=== PATIENT | male | born 1960 | race Caucasian/White ===

== ENCOUNTER → 2020-06-02 08:33 | Outpatient (BNVA) | payer SELFPAY | PROVIDERS: Family Provider General Practice; PCP Family Medicine; Visit Provider Podiatrist Foot & Ankle Surgery | DX: M79.672 Pain in left foot (principal); M79.89 Other specified soft tissue disorders | CPT/HCPCS: 73630 ==

== ENCOUNTER → 2020-06-18 09:00 | Outpatient (BNVA) | payer SELFPAY | PROVIDERS: Family Provider General Practice; PCP Family Medicine; Referring Provider Dermatology; Visit Provider Podiatrist Foot & Ankle Surgery | DX: M84.375D Stress fracture, left foot, subsequent encounter for fracture with routine healing (principal); X58.XXXD Exposure to other specified factors, subsequent encounter; Z47.89 Encounter for other orthopedic aftercare | CPT/HCPCS: 73630 ==

== ENCOUNTER → 2020-07-09 08:01 | Outpatient (BNVA) | payer SELFPAY | PROVIDERS: Family Provider General Practice; PCP Family Medicine; Visit Provider Podiatrist Foot & Ankle Surgery | DX: M84.375D Stress fracture, left foot, subsequent encounter for fracture with routine healing (principal) | CPT/HCPCS: 73630 ==

== ENCOUNTER 2020-11-04 07:04 | Inpatient (IN) | payer SELFPAY ==
[2020-11-04] VITALS (35 sets, daily range): BP systolic 115–162; BP diastolic 13–107; PULSE 60–851; RESP 10–33; TEMP 36.3–37.3; O2SAT 91–100; BMI 29.5
--- NOTE | 2020-11-04 07:07 | ECG_ITS ---
[facility] Test Date: 2020-11-04 Pat Name: Tyrese Bermudez Department: Room: Gender: Male Horseshoer: : 1960 Requested By: Jose Lobato Order Number: [id number] Yari MD: Gail Latham M.D. Measurements Intervals [place] Rate: 93 P: 31 ME: 154 QRS: 7 QRSD: 107 T: 35 QT: 362 QTc: 451 Interpretive Statements SINUS RHYTHM ST ELEVATION, CONSIDER INFERIOR INJURY [MARKED ST ELEVATION W/O NORMALLY INFLECTED T WAVE IN II/aVF] ACUTE OK Compared to ECG 08/15/2016 08:59:51 ST (T wave) deviation now present Myocardial infarct finding now present Electronically Signed On 11-04-2020 16:44:00 CDT by Gail Latham M.D. [id number] f
--- NOTE | 2020-11-04 07:07 | W.ED.CHESTPA ---
HPI - Chest Pain General: Chief Complaint: Chest Pain Stated Complaint: chest pain Time Seen by Provider: 11/04/20 07:06 History of Present Illness: HPI narrative: 60-year-old male presents with complaint of chest pain. Patient is a known history of coronary disease about 10 years ago had PTCA with RCA stent. He is still taking aspirin but no Plavix he is also on lisinopril. He is not having any chest discomfort recently this morning while in the shower he began to feel chest heaviness and discomfort was diaphoretic on arrival here he is diaphoretic he has ST elevation on the monitor and on initial EKG although the twelve-lead EKG is subtle. 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 Onset (ago): minute(s) Timing of current episode: constant Prior episodes: Yes Onset: during rest Pain location: left chest Pain radiation: none Severity: moderate Pain scale (0-10): 5 Quality: tightness and heaviness Relieving factors: nothing Exacerbating factors: exertion Associated symptoms: Reports diaphoresis, nausea and sense of impending doom; Deny abdominal pain, dyspnea, fever(s), leg edema, palpitations, syncope or vomiting Treatment prior to arrival: aspirin Review of Systems Const: Reports: diaphoresis; Denies: fever(s) ENMT: Denies: throat pain, ear or mastoid pain, nasal discharge or nasal congestion Card: Denies: palpitations or syncope Resp: Denies: dyspnea GI: Reports: nausea; Denies: abdominal pain or vomiting : Denies: flank pain, dysuria, urinary frequency or urinary urgency Skin/Breast: Denies: rash or pruritus [facility] ED PFSH: Medical History (Updated 11/04/20 @ 08:05 by Jose Singer DO) ASHD (arteriosclerotic heart disease) Dyslipidemia HTN (hypertension) Myocardial infarction Surgical History (Updated 11/04/20 @ 08:05 by Jose Singer DO) S/P PTCA (percutaneous transluminal coronary angioplasty) Family History Father CAD (coronary artery disease) Brother CAD (coronary artery disease) Hypertension Mother CAD (coronary artery disease) S/P CABG (coronary artery bypass graft) Social History Smoking and tobacco status: never smoked Household members: spouse Marital status: Physical Exam Const: COMMON NORMALS: no acute distress GENERAL APPEARANCE: cooperative and comfortable ORIENTATION/CONSCIOUSNESS: Yes awake, Yes oriented to person, Yes oriented to place and Yes oriented to time HENMT: COMMON NORMALS: normocephalic, atraumatic and hearing grossly normal bilaterally HEAD & SCALP: normocephalic and atraumatic Neck/C-Spine: COMMON NORMALS: no JVD Resp: COMMON NORMALS: normal respiratory effort, No retractions, No use of accessory muscles and clear to auscultation bilaterally AUSCULTATION: clear to auscultation bilaterally Cardio: COMMON NORMALS: no JVD, regular rhythm and No murmurs present (Cardio) RATE: tachycardic RHYTHM: regular rhythm Extremity: COMMON NORMALS: normal to inspection, capillary refill normal, no clubbing, cyanosis or edema, no calf tenderness and no pedal edema OTHER: Diaphoretic Neuro: SENSORIUM/ORIENTATION: Yes oriented to person, Yes oriented to place and Yes oriented to time Skin: COMMON NORMALS: no rashes or lesions noted GENERAL SKIN EXAM: no rashes or lesions noted Course Vital Signs: Vital signs: Vital Signs Temperature 97.4 F L 11/04/20 07:09 Pulse Rate 95 11/04/20 07:36 Respiratory Rate 17 11/04/20 07:36 Blood Pressure 155/99 11/04/20 07:36 Pulse Oximetry 95 11/04/20 07:36 MDM - Chest Pain MDM Narrative: Medical decision making narrative: Patient is having a STEMI. Reviewed with Dr. Solorzano of loaded him with aspirin and Plavix he has been prepped for the Hydropress Operator and will transfer directly to the Hydropress Operator Lab Data: Labs: Lab Results 11/04/20 11/04/20 11/04/20 Range/Units 07:15 07:15 07:15 WBC 9.5 (4.0-10.0) 10^3/ uL RBC 4.83 (4.1-5.3) 10^6/u L Hgb 14.3 (11.7-16.6) g/dL Hct 45.2 (42.0-52.0) % MCV 93.6 (80-94) fL MCH 29.6 (28.0-34.0) pg MCHC 31.6 (30.0-36.0) g/dL RDW 11.9 L (12.1-15.1) % Plt Count 305 (130-400) 10^3/c mm MPV 9.2 (7.4-10.4) fL Lymph % (Auto) Not Reportable [place] % (Auto) Not Reportable Lymph # (Auto) Not Reportable [place] # (Auto) Not Reportable Total Counted 100 (0-100) Atypical Lymphs % 7.0 H (0-5) % Absolute Neutrophi ls 5.9 (1.4-6.5) 10^3/c mm Segmented Neutroph ils 60 % Abs Segm Neuts (Ma n) 5.7 (1.6-7.1) 10/cmm Band Neutrophils 2.0 % Abs Band Neuts (Ma n) 0.2 (0.0-1.2) 10^3/c mm Absolute Lymphocyt es 2.4 (1.2-3.4) 10^3/c mm Lymphocytes (Manua l) 18 % Monocytes (Manual) 6.0 % Absolute Monocytes 0.6 (0.1-0.6) 10^3/c mm Eosinophils (Manua l) 7 % Absolute Eosinophi ls 0.6 (0.0-0.7) 10^3/c mm Basophils (Manual) 0.0 % Absolute Basophils 0.0 (0.0-0.2) 10^3/c mm Platelet Estimate Normal (Normal) Sodium 143 (136-145) mmol/L Potassium 3.7 (3.5-5.1) mmol/L Chloride 105 (98-107) mmol/L Carbon Dioxide 23 (22-29) mmol/L Anion Gap 18.7 (5-19) BUN 18 (6-20) mg/dL Creatinine 1.0 (0.7-1.2) mg/dL GFR Calculation 76.7 L (90-130) mL/min Glucose 120 H (65-115) mg/dL Calculated Osmolal ity 299 H (285-295) mOsm/k g Calcium 8.8 (8.5-10.5) mg/dL Total Bilirubin 0.6 (0.15-1.2) mg/dL AST 22 (0-40) U/L ALT 45 H (0-41) U/L Alkaline Phosphata se 93 (40-130) IU/L Creatine Kinase 70 (39-308) U/L Troponin T Baselin e 19 H (0-15) ng/L Total Protein 7.9 (6.6-8.7) g/dL Albumin 3.6 (3.5-5.2) g/dL Globulin 4.3 (1.3-4.6) g/dL Discharge Plan Discharge Patient Disposition: Admitted As Inpatient Clinical Impression: ST elevation myocardial infarction (STEMI), S/P PTCA (percutaneous transluminal coronary angioplasty), ASHD (arteriosclerotic heart disease), HTN (hypertension) Condition: Stable Coding Level of Care Code ED Web Analytics Developer for Mitali Fwd Exam Detailed
--- NOTE | 2020-11-04 07:10 | PC.NURSE ---
STEMI Alert called
[2020-11-04 07:21] LABS: Hematocrit 45.2 % (42.0-52.0); Hemoglobin 14.3 g/dL (11.7-16.6); Mean Corpuscular HGB Conc 31.6 g/dL (30.0-36.0); Mean Corpuscular Hemoglobin 29.6 pg (28.0-34.0); Mean Corpuscular Volume 93.6 fL (80-94); Mean Platelet Volume 9.2 fL (7.4-10.4); Platelet Count 305 10^3/cmm (130-400); Red Blood Count 4.83 10^6/uL (4.1-5.3); Red Cell Distribution Width 11.9 % (12.1-15.1); White Blood Count 9.5 10^3/uL (4.0-10.0)
[2020-11-04] MEDS: morphine 4 mg/mL SDV 1 mL 2 MG IVP ×2 (07:23→07:32)
[2020-11-04] MEDS: clopidogrel 300 mg Tablet 600 MG PO (07:29)
[2020-11-04] MEDS: heparin 5,000 unit/mL INJ 1 mL 4000 UNIT IVP (07:29)
--- NOTE | 2020-11-04 07:33 | XACV_ITS ---
Ht: 183 cm Wt: 93 kg BSA: 2.20 m2 Gender: Male : 1960 Any Known Allergies: Other Exam Priority: Routine Procedure(s): Procedure Description: Diagnostic procedure Procedure Description: PCI procedure Procedure Description: Left Heart Catheterization Procedure Description: Drug Eluting Coronary Stent Procedure Description: PTCA Procedure Description: Coronary Angiography Diagnostic Cath Status: Emergency Diagnostic Findings * Left Main has no significant disease. * Circumflex has mild luminal irregularities.. * Mid Right Coronary Artery:moderate 40-50% stenosis, JT: 3 flow. * Distal Right Coronary Artery: total thrombotic occlusion, JT: 0 flow. * Mid Left Anterior Descending: moderate 50% stenosis, JT: 3 flow. * Coronary angiography shows right dominance. PCI Status: Emergency PCI Indication: STEMI - Immediate PCI for STEMI Interventional Findings * Procedure details: We engaged RCA with a JR4 guide catheter. IV heparin was administered to maintain an ACT above 250 seconds. A 0.014 run-through guidewire was used to cross the stenosis and was placed in PDA branch. 2.5 x 8 mm semicompliant balloon was used to predilate the stenosis in the distal RCA/ PDA branch. This was followed by placement of 2.79S37ey resolute [place] drug-eluting stent extending from distal RCA into the PDA. Patient's PLV branch was jailed and could not be wired. However his ST elevations resolved and the patient was chest pain-free. We decided to stop the procedure there. At this time final angiogram was performed that showed excellent stent expansion, JT-3 flow and no residual stenosis. Guidewire and guide catheter were removed. Patient left the Abrasive Sawyer in a stable condition. * Distal Right Coronary Artery: 100% stenosis treated with a AB TREK 2.50X8 RX BALLOON, and MDT R MENDEZ 2.75X15 JULIEN. 0% residual stenosis, JT: 3 flow. Conclusions 1. Total thrombotic occlusion of distal RCA 2. status post successful revascularization with JULIEN x1.. 3. Moderate mid RCA and mid LAD stenosis. Recommendations * Transfer to CSU. * Aspirin and Plavix for atleast 1 year. * High intensity statin therapy. * Patient has moderate mid LAD and mid RCA stenosis. We will assess with stress test as outpatient to look for ischemia. * Outpatient follow up with cardiology in 4 weeks. Interventional RX Recommendation: PCI w/o planned CABG Diagnostic RX Recommendation: PCI w/o planned CABG Anticoagulation: Heparin Pressures Phase:Rest AO : 124 / 86 ( 105 ) @ 6:51:00 AM 108 / 32 ( 37 ) @ 6:53:00 AM 89 / 62 ( 77 ) @ 6:59:00 AM 94 / 67 ( 83 ) @ 7:06:00 AM 100 / 68 ( 85 ) @ 7:09:00 AM 103 / 79 ( 89 ) @ 7:17:00 AM 95 / 64 ( 80 ) @ 7:18:00 AM 105 / 70 ( 89 ) @ 7:27:00 AM 105 / 75 ( 91 ) @ 7:34:00 AM Clinical Evaluation EBL: 5mL-10mL Procedural Details Current Diagnosis : STEMI. Pre-Procedure Time Out. Identified patient by full name and date of as verbalized by the patient/guarantor. Does the consent match the physician's order: N/A Emergent; Informed Consent not obtained due to time critical life threat. Accurate & Complete Informed Consent: N/A Emergent; Informed Consent not obtained due to time critical life threat. Inpatient/Outpatient History & Physical on Chart: N/A Emergent; Informed Consent not obtained due to time critical life threat. If H&P is completed, is and addenduem needed: N/A Emergent; Informed Consent not obtained due to time critical life threat; If yes, is the addendum complete: N/A Emergent; Informed Consent not obtained due to time critical life threat. Visualize and Verify Site with Patient/Guarantor: N/A. Relevant Radiology Images available: N/A Emergent; Informed Consent not obtained due to time critical life threat. Pre-op teaching completed and patient verbalized understanding. The risks, benefits, and alternatives of sedation and/or procedure were discussed by physician. The patient agrees to continue. Procedure started. PERRLA. Strong, equal hand leather case finisher bilaterally. Lungs clear x 5 lobes. IV Site on Arrival: 18 gauge in the left anticubital. IV Site on Arrival: 20 gauge in the right anticubital. IV Fluids: 0.9% NaCl at KVO. 0 mL infused prior to crime lab analyst. Oxygen started at 2liters/min via nasal canula. right groin was prepped with chloroprep then draped in the usual sterile fashion. right radial was prepped with chloroprep then draped in the usual sterile fashion. Physician notified. Equipment: 6F - Radial. Cardiac Cath Pack. ACIST Manifold Kit Model BT 2000. Heparinized Saline (2 units/mL), 1000 mL bag. Physician arrived. ap pads on pt. Baseline sample Acquired. HR: 97 BPM. Physician scrubbed in. Immediate Pre-Procedure Time Out. Correct Patient: Yes; Correct Procedure: Yes; Correct Site: Yes; Correct Patient Position: Yes; Correct Supplies: Yes; Dried Flammable Prep: Yes; Blood Products Available: No;. Lidocaine 1% infiltrated to the right radial. Arterial access obtained. A 5 iraqi TIG catheter in over wire. Multiple views taken of left coronary artery. Catheter redirected to the RCA. Multiple views taken of right coronary artery. 6 iraqi JR 4 guide catheter was inserted over the wire. Runthrough guidewire was advanced through the guide catheter to lesion in the distal RCA. Inflation number : 1 A AB TREK 2.50X8 RX BALLOON was prepped and advanced across the Dist RCA , then inflated to 12 NONA for 0:22 seconds. Inflation number: 2 The AB TREK 2.50X8 RX BALLOON was reinflated across the Dist RCA, to 12 NONA for 0:24 seconds. Results checked. Balloon out. guide liner inserted over wire. Inflation number: 3 The AB TREK 2.50X8 RX BALLOON was reinflated across the Dist RCA, to 12 NONA for 0:22 seconds. Inflation number: 4 The AB TREK 2.50X8 RX BALLOON was reinflated across the Dist RCA, to 12 NONA for 0:16 seconds. Patient's family updated. Inflation number: 5 The AB TREK 2.50X8 RX BALLOON was reinflated across the Dist RCA, to 12 NONA for 0:19 seconds. Inflation number: 6 The AB TREK 2.50X8 RX BALLOON was reinflated across the Dist RCA, to 12 NONA for 0:12 seconds. Balloon out. Results checked. Inflation Number : 7 A MDT R MENDEZ 2.75X15 JULIEN -Lot Number#[id number] exp 07-06-2022 was prepped and advanced across the Dist RCA. The stent was deployed at 14 NONA for 0:24 seconds. Stent balloon out over wire. Results checked. Results checked. Patient's family updated. guide liner removed. Wire out. Runthrough guidewire was advanced through the guide catheter to lesion in the PLV. unable to advance guidewire. Wire out. Results checked. Guide catheter out. A 5 iraqi TIG catheter in over wire. ACT drawn. Results 211 seconds. Therapeutic limits - pre-heparin administration 90-150 seconds and monitoring heparin during a vascular procedure >250 seconds. Multiple views taken of left coronary artery. Catheter out. A TR Band was successful obtaining hemostatsis at the Right Radial artery insertion site. TR band placed. Hemostasis obtained. Post Procedure: Pulses reassessed and unchanged. PERRLA. Strong, equal hand leather case finisher bilaterally. No VTE prophylaxis required. Total IV fluids: 100 mL. Fluoro: 18:50. Contrast type used: Omnipaque 300 mgI/mL, 500 mL bottle. [id number]. Complications: none. Estimated blood loss: 5mL-10mL. Medication's Wasted: Nitro = 49.8 mg. Medication's Wasted: Heparin = 3000 units. PCI Indication: STEMI. Post-op diagnosis: stemi. [facility] Clinical Fraility Score: 2: Well. Abrasive Sawyer Indications: ACS <= 24 hours. Chest Pain Symptom Assessment: Typical Angina Symptoms. Cardiovascular Instability: No. Procedure completed. Patient transferred by wheelchair to Outpatient Surgery. Vital chart was stopped. Access Site Site: Right Radial artery Sheath Size: 5 Fr Hemostasis Method: TR Band Hemostasis Success: Successful Procedure Medications Start: 7:42 AM Stop: 7:42 AM Medication: Plavix Amount: 600 mg Route: P.O. Start: 7:42 AM Stop: 7:42 AM Medication: Heparin Amount: 4000 units Route: I.V. Start: 7:44 AM Stop: 7:44 AM Medication: Versed Amount: 1 mg Route: I.V. Start: 7:44 AM Stop: 7:44 AM Medication: Fentanyl Amount: 50 mcg Route: I.V. Start: 7:49 AM Stop: 7:49 AM Medication: Nitrogylcerin Amount: 200 mcg Route: I.A. Start: 7:51 AM Stop: 7:51 AM Medication: Heparin Amount: 5000 units Route: I.V. Start: 8:00 AM Stop: 8:00 AM Medication: Versed Amount: 1 mg Route: I.V. Start: 8:00 AM Stop: 8:00 AM Medication: Fentanyl Amount: 50 mcg Route: I.V. Start: 8:11 AM Stop: 8:11 AM Medication: Heparin Amount: 2000 units Route: I.V. Start: 8:28 AM Stop: 8:28 AM Medication: Nitrogylcerin Amount: 100 mcg Route: I.C. Start: 8:29 AM Stop: 8:29 AM Medication: Aggrastat 12.5 mg/250 mL Amount: 47 ml Route: I.V. bolus Start: 8:29 AM Stop: 8:29 AM Medication: Aggrastat 12.5 mg/250 mL Amount: 16.9 ml/hr Route: I.V. drip Start: 8:35 AM Stop: 8:35 AM Medication: 0.9% Saline Amount: 100 ml/hr Start: 8:38 AM Stop: 8:38 AM Medication: Heparin Amount: 1000 units Route: I.V. I, the attending physician, have reviewed and verified all procedure medications. Yes, all medications given per verbal order Report Signatures Finalized by David Keller MD on 11/13/2020 12:39 PM
[2020-11-04] MEDS: ondansetron 2 mg/ML SDV 2 mL 4 MG IVP (07:35)
[2020-11-04] MEDS: metoprolol tartrate 1 mg/1 mL SDV 5 mL 5 MG IV (07:35)
--- NOTE | 2020-11-04 07:39 | PC.NURSE ---
patient transported to entry level lab technician
--- NOTE | 2020-11-04 07:40 | PM.HP ---
Providers/Chief Complaint Primary Care Provider: Efren Hunt MD Chief Complaint: chest pain History of Present Illness Tyrese Bermudez is a 60 year old male with past medical history of coronary artery disease status post RCA stent, hypertension and hyperlipidemia has presented with severe substernal chest pressure. According to patient he was recently diagnosed with urinary tract infection and is on Cipro. For the last 2 days he was not feeling well. However no chest pain was there. He was fatigued and had sweating episodes. About 2 hours prior to presentation, he started noticing significant chest pressure. EKG has shown ST elevation in the inferior leads. Patient taken emergently to the cardiac Surveillance Sensor Officer and coronary angiogram performed showed occluded distal RCA stent. He underwent successful revascularization with JULIEN x1. Review of Systems Const: Denies: fever(s) Eyes: Denies: change in vision ENMT: Denies: throat pain Card: Reports: chest pain; Denies: irregular heart rhythm, swelling of feet/ankles or dyspnea on exertion Resp: Denies: dyspnea GI: Denies: heartburn : Denies: flank pain Musc: Denies: neck pain Skin/Breast: Denies: rash Neuro: Denies: headache(s) Psych: Denies: anxiety Medications/Allergies Home Medications Medication Instructions Recorded Confirmed Last Taken Type aspirin 81 mg tablet,delayed 81 mg PO DAILY 09/19/19 09/24/20 Unknown History release cetirizine 10 mg tablet 10 mg PO DAILY 09/19/19 09/24/20 Unknown History lisinopril 20 mg tablet 20 mg PO DAILY 09/19/19 09/24/20 Unknown History carbon fiber insert #1 ea 06/18/20 09/24/20 Unknown Rx Allergies Allergy/AdvReac Type Severity Reaction Status Date / Time influenza virus vaccine qs Allergy Severe ALGY-Conges Verified 11/04/20 07:14 [id number] (36 mos, up) mikki [From Single Use EZ Flu] PFSH Acute PFSH: Medical History (Updated 11/04/20 @ 12:18 by David Keller M.D) ASHD (arteriosclerotic heart disease) Dyslipidemia HTN (hypertension) Myocardial infarction Surgical History S/P PTCA (percutaneous transluminal coronary angioplasty) Family History Father CAD (coronary artery disease) Brother CAD (coronary artery disease) Hypertension Mother CAD (coronary artery disease) S/P CABG (coronary artery bypass graft) Social History Smoking and tobacco status: never smoked Household members: spouse Marital status: Vitals/I&O/Wt Last Vital Signs Temp 97.4 F L 11/04/20 07:09 Pulse 95 11/04/20 07:36 Resp 17 11/04/20 07:36 BP 155/99 11/04/20 07:36 Pulse Ox 95 11/04/20 07:36 Weight last 48 hrs Weight 206 lb Physical Exam Narrative: EXAM NARRATIVE: GENERAL: Patient is alert, awake and oriented x3. [] NECK: No jugular vein distension. [] HEENT: No cyanosis. No icterus. No pallor. [] HEART: Regular S1 and S2. No murmur, rub or gallop. [] LUNGS: Clear to auscultate bilaterally. [] ABDOMEN: Soft, nontender and nondistended. Positive bowel sounds. No guarding, rebound or tenderness. [] CENTRAL NERVOUS SYSTEM: Grossly nonfocal. [] EXTREMITIES: Lower extremities with 1+ edema bilaterally. Pulses palpable in the lower extremities, both dorsalis pedis and posterior tibial. [] Data : 11/04/20 07:15 11/04/20 07:15 A&P Assessment and plan (1) ST elevation myocardial infarction (STEMI): Status: Acute (2) HTN (hypertension): Status: Acute (3) Dyslipidemia: Status: Acute (4) UTI (urinary tract infection): Status: Acute Patient has presented with acute inferior wall ST elevation ID . Coronary angiogram revealed occluded distal RCA stent. He underwent successful revascularization with JULIEN x1. PLV branch remained occluded. Aspirin and Plavix for at least 1 year. High intensity statin therapy. Continue metoprolol and lisinopril. Order echocardiogram. We will continue ciprofloxacin for now as he was getting as outpatient. Monitor renal function. Attestations Medical Necessity Statement*: Care expected to cross 2 midnights. Patient presented with acute ST elevation ID and is status post successful revascularization with JULIEN x1. Coding Level of Care Code Acute Vocational Rehabilitation Counselor for Mitali Molina Diagnoses ST elevation myocardial infarction (STEMI) I21.3 HTN (hypertension) I10 Dyslipidemia E78.5 UTI (urinary tract infection) N39.0
[2020-11-04 07:49] LABS: Alanine Aminotransferase 45 U/L (0-41); Albumin Level 3.6 g/dL (3.5-5.2); Alkaline Phosphatase 93 IU/L (40-130); Aspartate Amino Transferase 22 U/L (0-40); Blood Urea Nitrogen 18 mg/dL (6-20); Calcium 8.8 mg/dL (8.5-10.5); Carbon Dioxide 23 mmol/L (22-29); Chloride 105 mmol/L (98-107); Creatine Phosphokinase 70 U/L (39-308); Globulin 4.3 g/dL (1.3-4.6); Glomerular Filtration Rate 76.7 mL/min (90-130); Glucose 120 mg/dL (65-115); Osmolality Calculated 299 mOsm/kg (285-295); Sodium 143 mmol/L (136-145); Total Bilirubin 0.6 mg/dL (0.15-1.2); Total Protein 7.9 g/dL (6.6-8.7)
[2020-11-04 07:50] LABS: Anion Gap 18.7 (5-19); Potassium 3.7 mmol/L (3.5-5.1); Troponin(5th) Baseline 19 ng/L (0-15)
[2020-11-04 07:55] LABS: Slide Review Slide Review Perform
[2020-11-04 07:57] LABS: Absolute Eosinophils 0.6 10^3/cmm (0.0-0.7); Absolute Neutrophil 5.9 10^3/cmm (1.4-6.5); Absolute Segmented Neutrophil 5.7 10/cmm (1.6-7.1); Band Neutrophils Absolute 0.2 10^3/cmm (0.0-1.2); Eosinophils 7 %; Lymphocytes 18 %; Lymphocytes Absolute 2.4 10^3/cmm (1.2-3.4); Monocytes Absolute 0.6 10^3/cmm (0.1-0.6); Platelet Estimate Normal (Normal); Segmented Neutrophils 60 %; Total Cells Counted 100 (0-100)
--- NOTE | 2020-11-04 08:01 | ECG_ITS ---
[facility] Test Date: 2020-11-04 Pat Name: Tyrese Bermudez Department: Room: Gender: Male Rn Medical Inpatient Services: : 1960 Requested By: Jose Lobato Order Number: [id number] Yari MD: Gail Latham M.D. Measurements Intervals [place] Rate: 102 P: 29 ND: 148 QRS: 8 QRSD: 105 T: 25 QT: 350 QTc: 456 Interpretive Statements SINUS TACHYCARDIA ST ELEVATION, CONSIDER INFERIOR INJURY [MARKED ST ELEVATION W/O NORMALLY INFLECTED T WAVE IN II/aVF] ACUTE TN Compared to ECG 11/04/2020 07:25:04 No significant changes Electronically Signed On 11-04-2020 16:43:51 CDT by Gail Latham M.D. [id number] f
--- NOTE | 2020-11-04 09:07 | ECG_ITS ---
[facility] Test Date: 2020-11-04 Pat Name: Tyrese Bermudez Department: Room: Gender: Male Credit Controller: : 1960 Requested By: Jose Lobato Order Number: [id number] Yari MD: Gail Latham M.D. Measurements Intervals [place] Rate: 100 P: 52 IA: 154 QRS: 13 QRSD: 105 T: 39 QT: 342 QTc: 442 Interpretive Statements SINUS TACHYCARDIA WITH OCCASIONAL VENTRICULAR PREMATURE COMPLEXES MODERATE ST DEPRESSION [0.05+ mV ST DEPRESSION] INTERPRETATION BASED ON A DEFAULT AGE OF 40 YEARS Compared to ECG 08/15/2016 08:59:51 Ventricular premature complex(es) now present ST (T wave) deviation now present Sinus rhythm no longer present Electronically Signed On 11-04-2020 16:51:32 CDT by Gail Latham M.D. [id number] f
--- NOTE | 2020-11-04 09:14 | SUR.PHASEI ---
0900 PATIENT TO RECOVERY AT THIS TIME FROM BIOMEDICAL EQUIPMENT TECHNICIAN. RR EVEN AND UNLABORED. CARE ASSUMED OF PATIENT. WILL CONTINUE MONITOR.
[2020-11-04] MEDS: metoprolol succinate ER (24 HR) 25 mg Tablet PO (10:35)
--- NOTE | 2020-11-04 11:12 | SUR.PHASEI ---
1030 band deflation started at this time.
--- NOTE | 2020-11-04 11:53 | USCV_ITS ---
Tyrese Bermudez Age: 60 Gender: M : 1960 Exam Date: 11/04/2020 12:12 Ordering Phys: David Keller M.D ([email or web address]) Technologist: Yana Earl Exam Location: [facility] [place] Indication: POST STEMI BP: / HR: 72 Rhythm: Sinus Technical Quality: Adequate MEASUREMENTS (Male / Female) Normal Values 2D ECHO LV Diastolic Diameter PLAX 4.3 cm 4.2 - 5.9 / 3.9 - 5.3 cm LV Systolic Diameter PLAX 2.8 cm LV Chamber Size 3.5 cm IVS Diastolic Thickness 1.3 cm 0.6 - 1.0 / 0.6 - 0.9 cm IVS Systolic Thickness 1.6 cm LVPW Diastolic Thickness 1.5 cm 0.6 - 1.0 / 0.6 - 0.9 cm LVPW Systolic Thickness 1.6 cm RV Chamber Size 1.7 cm LVOT Diameter 2.0 cm LV Ejection Fraction 2D Teich 64.7 % LV Ejection Fraction MOD 2C 20.4 % LV Ejection Fraction 2C AL 23.3 % LA Diameter 3.6 cm LA Width 2.7 cm LA Height 4.1 cm RA Width 2.7 cm RA Height 4.5 cm Aorta at Sinotubular Diameter 3.6 cm M-MODE LV Diastolic Diameter MM 5.2 cm 4.2 - 5.9 / 3.9 - 5.3 cm LV Systolic Diameter MM 3.7 cm LV Ejection Fraction MM Teich 55.8 % IVS Diastolic Thickness MM 1.1 cm 0.6 - 1.0 / 0.6 - 0.9 cm IVS Systolic Thickness MM 1.6 cm LVPW Diastolic Thickness MM 1.3 cm 0.6 - 1.0 / 0.6 - 0.9 cm LVPW Systolic Thickness MM 1.8 cm Aortic Annulus Diameter 4.1 cm LA Ao Ratio MM 1.1 MV E Point Septal Separation 0.8 cm DOPPLER AV Peak Velocity 116.0 cm/s LVOT Peak Velocity 60.3 cm/s AV Area Cont Eq vti 2.1 cm squared AV Area Cont Eq pk 1.7 cm squared MV Area PHT 3.3 cm squared Mitral E to A Ratio 1.6 MV E' Velocity 38.5 cm/s Mitral E to MV E' Ratio 7.2 Mitral E to LV E' Lateral Ratio 6.9 Mitral E to LV E' Septal Ratio 7.5 TR Peak Velocity 227.9 cm/s TR Peak Gradient 20.8 mmHg TR Mean Velocity 181.6 cm/s TR Mean Gradient 14.2 mmHg TR Velocity Time Integral 62.0 cm TV Peak E Velocity 67.0 cm/s Right Atrial Pressure 3.0 mmHg Pulmonary Artery Systolic Pressu 23.8 mmHg PV Peak Velocity 61.0 cm/s RV Acceleration Time 0.1 s RV Ejection Time 0.4 s RV AcT/ET 0.3 FINDINGS Left Ventricle Normal left ventricular size. LV systolic function is mildly reduced with EF of 40-45%. Mild global hypokinesis with moderate hypokinesis of inferolateral and inferior jung. Normal diastolic filling pattern. Right Ventricle The right ventricle is normal in size and function. Right Atrium The right atrium is normal in size. Left Atrium The left atrium is mildly dilated Mitral Valve Grossly normal without significant stenosis or prolapse. There is no mitral regurgitation. Aortic Valve Not well visualized. No significant stenosis. There is no aortic regurgitation. Tricuspid Valve Structurally normal tricuspid valve without significant stenosis or regurgitation. Insufficient TR jet to calculate RVSP Pulmonic Valve Structurally normal pulmonic valve without significant stenosis. There is no pulmonic regurgitation. Pericardium Small sized pericardial effusion is noted Aorta Normal ascending aorta dimension. CONCLUSIONS This is a limited quality echocardiogram because of poor ultrasonic windows. LV systolic function is mildly decreased with EF of 40 to 45%. Diastolic function is normal No significant valvular heart disease is seen. Small sized pericardial effusion is seen. No comparison studies are available. David Keller MD (Electronically Signed) Final Date: 04 November 2020 17:37 S
--- NOTE | 2020-11-04 11:58 | SUR.PHASEI ---
TRANSFER Patient transferred to ICU via bed with belonging in hand. Family to WR. Shyla GUNDERSON received report. No issues at this time. Band removed INCIDENT COORDINATOR by myself with no Hematoma noted.
--- NOTE | 2020-11-04 12:01 | PC.NURSE ---
Pt arrived to ICU fro PACU. No chest pain, nausea or vomiting. NSR on monitor. Aggrastat and NS infusing into right AC IV. Another peripheral IV noted in left AC, blood return checked and flushes easily. Right wrist pink with appropriate cap refill, pulse steady and palpable. No bleeding noted at cath puncture site. Noted pt has a very slight amount of blood under his left nostril. Pt and oriented to room and call light.
--- NOTE | 2020-11-04 12:32 | PC.NURSE ---
Aggrastat off at 1230, as ordered.
--- NOTE | 2020-11-04 13:07 | ECG_ITS ---
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 Measurements Intervals [place] Rate: 106 P: 29 MS: 148 QRS: 1 QRSD: 97 T: 20 QT: 324 QTc: 431 Interpretive Statements SINUS TACHYCARDIA LOW QRS VOLTAGE IN PRECORDIAL LEADS [QRS DEFLECTION < 1.0 mV IN CHEST LEADS] POSSIBLE RIGHT VENTRICULAR CONDUCTION DELAY [RSR (QR) IN V1/V2] ANTEROSEPTAL MYOCARDIAL INFARCTION, OF INDETERMINATEAGE MARKED ST ELEVATION, CONSIDER INFERIOR INJURY ACUTE CO Compared to ECG 11/04/2020 07:18:18 Low QRS voltage now present Sinus rhythm no longer present Myocardial infarct finding still present ST (T wave) deviation still present Electronically Signed On 11-04-2020 16:50:58 CDT by Gail Latham M.D. [id number]
[2020-11-04 14:59] LABS: Add Urine Microscopic? NO; Charge for UA Resulting for Rev
[2020-11-04 15:17] LABS: Bilirubin Urine Neg (Negative); Blood Urine Neg (Negative); Glucose Urine UA Norm (Normal); Ketones Urine Negative (Negative); Leukocyte Esterase Urine Negative (Negative); Nitrate Urine Negative (Negative); Protein Urine Neg (Negative); Urine Appearance Clear (CLEAR); Urine Color Yellow (Yellow); Urobilinogen Urine Norm (Negative); pH Urine 5 (5-7)
[2020-11-04] MEDS: lisinopril 20 mg Tablet PO (15:25)
[2020-11-04] MEDS: sodium chloride 0.9% 1,000 ML 100 ML IV (18:02)
--- NOTE | 2020-11-04 19:20 | PC.NURSE ---
Report given to JALYN Rose.
--- NOTE | 2020-11-04 19:28 | PC.NURSE ---
Shift summary: Pt arrived to ICU at noon. TR band had already been released for 2-3 hours. HIs afternoon has been relatively uneventful. Hypertension noted, Dr Keller ordered his daily dose of lisinopril. B/P improved. No ectopy seen on monitor. Pt did complain of slight indigestion after lunch, which was relieved by lying on his side. Pt has adequate urine output, of clear yellow urine.
[2020-11-04] MEDS: atorvastatin 40 mg Tablet PO (20:46)
[2020-11-04] MEDS: ciprofloxacin 500 mg Tablet PO (20:46)
[2020-11-04] MEDS: metoprolol tartrate 25 mg Tablet PO (20:46)
[2020-11-05] VITALS (14 sets, daily range): BP systolic 109–134; BP diastolic 72–86; PULSE 64–84; RESP 14–23; TEMP 36.7–37.1; O2SAT 91–98
[2020-11-05 04:56] LABS: Basophils # 0.1 10^3/uL (0.0-0.1); Eosinophils # 0.2 10^3/uL (0.0-0.8); Eosinophils % 2.3 %; Hematocrit 41.9 % (42.0-52.0); Hemoglobin 12.8 g/dL (11.7-16.6); Lymphocytes # 1.5 10^3/uL (0.8-4.8); Lymphocytes % 16.6 %; Mean Corpuscular HGB Conc 30.5 g/dL (30.0-36.0); Mean Corpuscular Hemoglobin 29.6 pg (28.0-34.0); Mean Corpuscular Volume 96.8 fL (80-94); Mean Platelet Volume 9.2 fL (7.4-10.4); Monocytes # 0.6 10^3/uL (0.2-0.9); Monocytes % 7.1 %; Neutrophils % 72.5 %; Nucleated Red Blood Cells % 0 %; Platelet Count 274 10^3/cmm (130-400); Red Blood Count 4.33 10^6/uL (4.1-5.3); Red Cell Distribution Width 12.1 % (12.1-15.1); White Blood Count 8.8 10^3/uL (4.0-10.0)
[2020-11-05 05:14] LABS: Anion Gap 14.1 (5-19); Blood Urea Nitrogen 10 mg/dL (6-20); Calcium 8.1 mg/dL (8.5-10.5); Carbon Dioxide 24 mmol/L (22-29); Chloride 107 mmol/L (98-107); Glomerular Filtration Rate 99.3 mL/min (90-130); Glucose 110 mg/dL (65-115); Osmolality Calculated 292 mOsm/kg (285-295); Potassium 4.1 mmol/L (3.5-5.1); Sodium 141 mmol/L (136-145)
--- NOTE | 2020-11-05 09:29 | PM.DCS ---
Discharge Providers Date of Admission: 11/04/20 11:46 Date of Discharge: November 05, 2020 Attending Provider at Admission: David Keller M.D Attending Provider at Discharge: David Keller M.D Primary Care Provider: Efren Hunt MD Diagnoses at Discharge Discharge Diagnosis (1) ST elevation myocardial infarction (STEMI): Status: Acute (2) HTN (hypertension): Status: Acute (3) Dyslipidemia: Status: Acute (4) UTI (urinary tract infection): Status: Acute Reason for Visit Reason for Visit: chest pain Brief History: 60 year old male with past medical history of coronary artery disease status post RCA stent, hypertension and hyperlipidemia has presented with severe substernal chest pressure. According to patient he was recently diagnosed with urinary tract infection and is on Cipro. For the last 2 days he was not feeling well. However no chest pain was there. He was fatigued and had sweating episodes. About 2 hours prior to presentation, he started noticing significant chest pressure. EKG has shown ST elevation in the inferior leads. Patient taken emergently to the cardiac Monomer Purification Operator and coronary angiogram performed showed occluded distal RCA stent. He underwent successful revascularization with JULIEN x1. Hospital Course Hospital Course 60 year old male with past medical history of coronary artery disease status post RCA stent, hypertension and hyperlipidemia has presented with severe substernal chest pressure. According to patient he was recently diagnosed with urinary tract infection and is on Cipro. For the last 2 days he was not feeling well. However no chest pain was there. He was fatigued and had sweating episodes. About 2 hours prior to presentation, he started noticing significant chest pressure. EKG has shown ST elevation in the inferior leads. Patient taken emergently to the cardiac Monomer Purification Operator and coronary angiogram performed showed occluded distal RCA stent. He underwent successful revascularization with JULIEN x1. Patient also had moderate disease of mid RCA. He will need outpatient stress test as outpatient to assess for ischemia. Patient state overnight in the hospital. He was chest pain-free and EKG changes resolved. His echocardiogram performed showed mildly reduced LV systolic function. In the past he had not tolerated statin therapy however we will restart it and see if he can tolerate at this time. We will follow him as outpatient. Physical Exam Narrative: EXAM NARRATIVE: GENERAL: Patient is alert, awake and oriented x3. [] NECK: No jugular vein distension. [] HEENT: No cyanosis. No icterus. No pallor. [] HEART: Regular S1 and S2. No murmur, rub or gallop. [] LUNGS: Clear to auscultate bilaterally. [] ABDOMEN: Soft, nontender and nondistended. Positive bowel sounds. No guarding, rebound or tenderness. [] CENTRAL NERVOUS SYSTEM: Grossly nonfocal. [] EXTREMITIES: Lower extremities with no edema bilaterally. Pulses palpable in the lower extremities, both dorsalis pedis and posterior tibial. [] Discharge Data Data Completed and Pending: Completed Studies During Hospitalization Category Date Time Status CV. echo complete * [id number] Routine Ultrasound 11/04/20 11:53 Completed Pending at discharge Category Date Time Status CLASS A [facility]IONAL [employer]ERS request for service Stat Exams 11/04/20 07:33 Taken Labs from last 24 hours 11/05/20 11/05/20 11/04/20 04:26 04:26 14:46 WBC 8.8 RBC 4.33 Hgb 12.8 Hct 41.9 L MCV 96.8 H MCH 29.6 MCHC 30.5 RDW 12.1 Plt Count 274 MPV 9.2 Neut % (Auto) 72.5 Lymph % (Auto) 16.6 Talbot % (Auto) 7.1 Eos % (Auto) 2.3 Baso % (Auto) 1.0 Neut # (Auto) 6.40 Lymph # (Auto) 1.5 Talbot # (Auto) 0.6 Eos # (Auto) 0.2 Baso # (Auto) 0.1 Nucleated RBC % (a uto) 0 Nucleated RBCs # 0.0 Sodium 141 Potassium 4.1 Chloride 107 Carbon Dioxide 24 Anion Gap 14.1 BUN 10 Creatinine 0.8 GFR Calculation 99.3 Glucose 110 Calculated Osmolal ity 292 Calcium 8.1 L Urine Color Yellow Urine Appearance Clear Urine pH 5 Ur Specific Gravit y 1.010 Urine Protein Neg Urine Glucose (UA) Norm Urine Ketones Negative Urine Blood Neg Urine Nitrate Negative Urine Bilirubin Neg Urine Urobilinogen Norm Ur Leukocyte Sabi ase Negative Vitals: Last Vital Signs Temp 98.2 F 11/05/20 07:00 Pulse 77 11/05/20 08:00 Resp 18 11/05/20 08:00 BP 116/72 11/05/20 08:00 Pulse Ox 96 11/05/20 08:00 Discharge Plan Discharge Patient Disposition: Home Condition: Stable Prescriptions: New atorvastatin 40 mg Tablet 40 mg PO BEDTIME Qty: 60 RF: 3 lisinopril 20 mg Tablet 20 mg PO DAILY Qty: 90 RF: 3 clopidogrel 75 mg Tablet 75 mg PO DAILY Qty: 90 RF: 3 aspirin 81 mg Tablet,Delayed Release (Dr/Ec) 81 mg PO DAILY Qty: 90 RF: 3 metoprolol tartrate 25 mg Tablet 25 mg PO BID@0900,2100 Qty: 120 RF: 3 Continued lisinopril 20 mg tablet 20 mg PO DAILY RF: 0 (DME) carbon fiber insert See Rx Instructions .Route .MEDSUPPLY Qty: 1 RF: 0 ciprofloxacin HCl 500 mg tablet 500 mg PO BID RF: 0 Vitamin D3 25 mcg (1,000 unit) Capsule 3,000 unit PO QAM RF: 0 Zinc Gummies 2 tab PO DAILY RF: 0 Discontinued aspirin [Aspir-81] 81 mg Tablet,Delayed Release (Dr/Ec) 81 mg PO QAM RF: 0 Discharge Orders: Discharge Order (Routine); Ordered 11/05/20 Ordered By: David Keller Referrals: David Keller M.D [Physician] - 1 month Nasrin Maldonado FNP [Nurse Practitioner] - 7-10 days Discharge Diet: Cardiac Discharge Activity: Increase activity as tolerated Patient Instructions: Left Heart Catheterization (DC), Coronary Angioplasty (DC), Opioid Safety Activity Restrictions/Additional Instructions: Please do not lift more than 5 pounds of weight for the next 5 days Discharge Attestations Time Spent in Discharge Care*: greater than 30 min Quality Metrics Clinical Quality Measures During this hospital stay, did patient experience: AMI Clinical Trial Participant: No Contraindication to aspirin (AMI): Aspirin given Contraindication to statin: Statin prescribed Contraindication to PCI: PCI performed Coding Level of Care Code Acute Chg FW DC note Diagnoses ST elevation myocardial infarction (STEMI) I21.3 HTN (hypertension) I10 Dyslipidemia E78.5 UTI (urinary tract infection) N39.0
[2020-11-05] MEDS: aspirin 81 mg EC Tablet PO (09:34)
[2020-11-05] MEDS: ciprofloxacin 500 mg Tablet PO (09:34)
[2020-11-05] MEDS: lisinopril 20 mg Tablet PO (09:34)
[2020-11-05] MEDS: clopidogrel 75 mg Tablet PO (09:34)
[2020-11-05] MEDS: metoprolol tartrate 25 mg Tablet PO (09:34)
--- NOTE | 2020-11-05 09:37 | PC.NURSE ---
Ambulated around ICU nurses station twice, tolerated well, denies any discomfort, pain, or shortness of breath. Back to bedside chair to wait for discharge orders.
--- NOTE | 2020-11-05 10:08 | PC.CHAP ---
Pastoral Care Encounter/Spiritual Assessment Type of Contact [] Declined agriculture teacher visit [] Patient/Family/Request visit [] Outpatient visit [] Follow-up visit [] Physician referral [] Code/Alert [x] Routine visit [] Staff referral [] Actively dying [] Patient sleeping [x] Family support [] [] Out of room [] Palliative care [] [] Receiving care in room [] Pre-surgical visit [] Trauma [] Long length of stay [x] ICU visit [] Other: Relational/Emotional Strength [] Patient feels connected with others/family/visitors/staff [] Distress [] Loneliness/isolation [] Abandonment Spirituality of Patient [] Person of Masha [] Attends Congregation of their Masha [] Believes in Prayer [] Reads Bible or Sabianism materials [] There are Spiritual issues to be addressed Electric Motor Winders Assembler Interventions [x] Prayer [x] Active listening [x] Non-anxious presence [x] Spiritual/emotional support [] Crisis/trauma care [] Spiritual counseling [] Bereavement support [] Provided bereavement packet [] Provided Bible/devotional materials [] Provided toy/stuffed animal, coloring book to patient or family member [] Provided Communion [] Anointing/Achille [] Salvation [x] Completed spiritual assessment [] Other: Impact on Illness or Injury [] Angry [] Fearful [] Anxious [] Often cries [] Exhaustion [] Unable to work [] Unable to attend mosque [] Unable to walk/stand [] Unable to read [] Unable to drive [] Unable to eat/drink [] Unable to sleep [] Unable to be with family [] Patient intubated [] Other: Summary patient preparing to go home... received second heart stint in 10 years.. feeling strong., Time spent with patient 10 min
== END 2020-11-05 11:35 | disposition home or self-care (01) | DRG 247 ==
LOC: ER 07:09 → CCL 07:34 → ICU 11:46
PROVIDERS: Admitting Provider Internal Medicine; Emergency Provider Family Medicine; PCP Family Medicine; Visit Provider Internal Medicine
PROC: 027034Z Dilation of Coronary Artery, One Artery with Drug-eluting Intraluminal Device, Percutaneous Approach (ICD-10-PCS; principal; 2020-11-04 08:00)
PROC: 027034Z Dilation of Coronary Artery, One Artery with Drug-eluting Intraluminal Device, Percutaneous Approach (ICD-10-PCS; 2020-11-04 08:00)
DX: I21.11 ST elevation (STEMI) myocardial infarction involving right coronary artery (principal); T82.855A Stenosis of coronary artery stent, initial encounter; N39.0 Urinary tract infection, site not specified; Y71.1 Therapeutic (nonsurgical) and rehabilitative cardiovascular devices associated with adverse incidents; I25.10 Atherosclerotic heart disease of native coronary artery without angina pectoris; I10 Essential (primary) hypertension; E78.5 Hyperlipidemia, unspecified; I25.2 Old myocardial infarction
CPT/HCPCS: 36415; 80048; 80053; 81003; 82550; 84484; 85007; 85025; 85347; 93005; 93306; 93454; 96365; 96375; 99291; C1725; C1769; C1874; C1887; C1894; C9600; J1644; J2250; J2270; J2405; J3010; J3246; J3490; J7030; Q9967

== ENCOUNTER → 2020-11-13 11:13 | Outpatient (BNVA) | payer SELFPAY | PROVIDERS: PCP Family Medicine; Visit Provider Nurse Practitioner Family | DX: I25.10 Atherosclerotic heart disease of native coronary artery without angina pectoris (principal); E78.5 Hyperlipidemia, unspecified; Z09 Encounter for follow-up examination after completed treatment for conditions other than malignant neoplasm | CPT/HCPCS: 80048 ==

== ENCOUNTER 2021-09-23 07:28 | Outpatient (CLI) | payer SELFPAY ==
--- NOTE | 2021-09-23 07:33 | ECG_ITS ---
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 Interpretive Statements NAME OF STUDY: EXERCISE SESTAMIBI STRESS TEST INDICATION: [Shortness of Breath; Chest Pain, ] EXERCISE DATA: The patient was exercised by Julien protocol. Baseline heart rate was 59 beats per minute. Baseline blood pressure was 155/87 millimeters of mercury. Target heart rate was 136 beats per minute. Maximum heart rate achieved was 150, which was 110% of the target heart rate. Maximum blood pressure was 173/108 millimeters of mercury. Total exercise time was 6 minute. Maximum METs achieved was 7, maximum VO2 was 24.5. The reason for ending the test was completion of the protocol. The patient did not complain of any symptoms during the stress test. ELECTROCARDIOGRAM: BASELINE: Showed sinus rhythm, normal axis, no significant ST-T changes at the baseline noted. [] EXERCISE: At the peak exercise level, [] No significant ST-T changes suggestive of ischemia noted. [] RECOVERY: During the recovery period, heart rate dropped appropriately. No significant ST-T changes in the recovery suggestive of ischemia noted. [] CONCLUSION: 1. Exercise capacity fair. 2. Heart rate response was appropriate. 3. Blood pressure response was appropriate. 4. Symptoms not suggestive of ischemia. 5. Electrocardiogram portion of the stress test was not suggestive of ischemia. 6. Nuclear scan will be documented separately. Electronically Signed On 10-11-2021 14:37:14 CDT by David Keller M.D. [id number]
--- NOTE | 2021-09-23 07:34 | NMCV_ITS ---
NM rosario perf SPECT r/s* [id number] Tyrese Bermudez Age: 61 Gender: M : 1960 Exam Date: 09/23/2021 09:01 Ordering Phys: David Keller M.D ([email or web address]) Technologist: DEANNE Scanlon Exam Location: [facility] Indications: SHORTNESS OF BREATH, CHEST PAIN STRESS TEST [facility] IMAGE PROTOCOL Rest/Stress 1 Exercise Day Radiopharmaceutical Dose (mCi) Administration Site Administered by Rest: Tc-99m 10.7 IV DEANNE Scanlon Sestamibi Stress:Tc-99m 32.2 IV DEANNE Orona Sestamibi Rest: 23-Sep-2021 60 Discovery 630 Stress: 23-Sep-2021 30 Discovery 630 Radiopharmaceutical was injected at 85 % maximum heart rate. Images obtained in supine and prone position. SPECT RESULTS Technical Quality: Excellent Raw Data Analysis: Normal Image Corrections: No attenuation or motion correction applied Summed Stress Score: 6 Summed Rest Score: 0 Summed Difference Score: 6 PERFUSION FINDINGS There is a medium sized mostly fixed perfusion defect in the inferior and inferolateral jung. This is consistent with moderate sized prior infarct seen in these territories. FUNCTIONAL RESULTS (calculated via Gated SPECT) Stress Image LV EF (%): 62 Stress EDV (mL):93 TID: 0.97 Stress ESV (mL):35 FUNCTIONAL FINDINGS: There is normal left ventricular systolic function. IMPRESSIONS 1. Abnormal myocardial perfusion imaging showing medium sized prior infarct in the inferior and inferolateral jung. No evidence of ischemia is seen 2. LV systolic function is normal David Keller MD (Electronically Signed) Final Date: 29 September 2021 17:33 S
[2021-09-23 07:47] VITALS: BMI 28.7
[2021-09-23 09:52] VITALS: BP 164/97; PULSE 90
== END 2021-09-23 07:29 | disposition home or self-care (01) ==
LOC: CDL 07:30
PROVIDERS: PCP Family Medicine; Visit Provider Internal Medicine
DX: R07.9 Chest pain, unspecified (principal); R06.02 Shortness of breath
CPT/HCPCS: 78452; 93017; A9500

== ENCOUNTER 2021-11-27 20:58 | Observation (INO) | payer SELFPAY ==
[2021-11-27 21:11] VITALS: BP 172/111; PULSE 97; RESP 18; TEMP 36.7; O2SAT 94; BMI 28.0
--- NOTE | 2021-11-27 21:20 | CTR_ITS ---
PROCEDURE INFORMATION: Exam: CT Head Without Contrast Exam date and time: 11/27/2021 9:28 PM Age: 61 years old Clinical indication: Weakness, extremity; Right; Patient HX: Sudden onset of RT hand weakness; Additional info: Stroke symptoms TECHNIQUE: Imaging protocol: Computed tomography of the head without contrast. Radiation optimization: All CT scans at this facility use at least one of these dose optimization techniques: automated exposure control; mA and/or kV adjustment per patient size (includes targeted exams where dose is matched to clinical indication); or iterative reconstruction. COMPARISON: MR head wo/w con [id number] 06/30/2016 9:21 AM RADIATION DOSE METRICS: Total DLP (mGy-cm): 1080.68 FINDINGS: Brain: No evidence of acute intracranial hemorrhage. The vail-white matter differentiation is maintained. Mild periventricular hypoattenuation is a nonspecific finding but likely the sequela of s chronic small vessel ischemic disease. Mild atherosclerotic calcifications of the carotid siphons. Unremarkable white matter. No mass effect. Cerebral ventricles: Mild cerebral volume loss and ex vacuo dilation of the ventricles. Paranasal sinuses: Visualized sinuses are unremarkable. No fluid levels. Mastoid air cells: Visualized mastoid air cells are well aerated. Bones/joints: Unremarkable. No acute fracture. Soft tissues: Unremarkable. CT/CT head wo con* [id number] IMPRESSION: 1. No acute intracranial hemorrhage. 2. Please note that CT is insensitive to nonhemorrhagic strokes and MRI of the brain should be considered if there is continued clinical concern for acute cerebral infarction.
--- NOTE | 2021-11-27 21:22 | CTR_ITS ---
PROCEDURE INFORMATION: Exam: CT Cervical Spine Without Contrast Exam date and time: 11/27/2021 9:31 PM Age: 61 years old Clinical indication: Patient HX: Sudden onset of RT hand weakness; Additional info: Wekness in right hand TECHNIQUE: Imaging protocol: Computed tomography of the cervical spine without contrast. Radiation optimization: All CT scans at this facility use at least one of these dose optimization techniques: automated exposure control; mA and/or kV adjustment per patient size (includes targeted exams where dose is matched to clinical indication); or iterative reconstruction. COMPARISON: CT angio headneck* [id number] 06/06/2016 1:16 AM RADIATION DOSE METRICS: Total DLP (mGy-cm): 140.37 FINDINGS: Bones/joints: Mild dextrocurvature of the cervical spine. Straightening of the cervical lordosis. The alignment is otherwise maintained. The vertebral body heights are maintained. No evidence of acute fractures. Slight tilt of the odontoid process posteriorly results in slight indentation on the ventral aspect of the thecal sac at the upper cervical spine. No significant spinal canal stenosis related to the above. Other than osteoarthritis of the middle atlantoaxial joint, the craniocervical junction appear grossly unremarkable. Space. At C7-T1: There is anterolisthesis of C7 on T1. Mild disc bulge. Bilateral facet arthropathy and uncovertebral hypertrophy. Moderate or moderate to severe neural foraminal stenosis. Discs/Spinal canal/Neural foramina: Multilevel degenerative disc disease, worse at C5-C6 and C6-C7 with decreased disc space height and marginal spurring. Mild thickening of the posterior longitudinal ligament. At C2-C3: Minimal disc bulge. The spinal canal and neural foramina are patent. At C3-C4: Minimal disc osteophyte complex. The spinal canal and neural foramina are patent. At C4-C5: Minimal disc bulge. The spinal canal and neural foramina are patent. At C5-C6: Disc osteophyte complex results in mild indentation on the ventral aspect of the thecal sac. No significant spinal canal stenosis. Bilateral facet arthropathy and uncovertebral hypertrophy. Moderate to severe bilateral neural foraminal stenosis. At C6-C7: Diffuse disc bulge/disc osteophyte complex. No high-grade spinal canal stenosis. Bilateral facet arthropathy and uncovertebral hypertrophy, right more than left. Moderate to severe right and mild left neural foraminal stenosis. Lungs: Lung apices are normal. Soft tissues: Scattered small cervical lymph nodes are nonspecific. CT/CT cervical spin wo con* [id number] IMPRESSION: 1. Multilevel degenerative disc and joint disease as detailed level -by -level above. 2. Multilevel neural foraminal stenosis, worse on the right side.
[2021-11-27 21:26] LABS: Basophils % 0.4 %; Eosinophils # 0.1 10^3/uL (0.0-0.8); Eosinophils % 0.7 %; Hematocrit 48.6 % (42.0-52.0); Hemoglobin 15.6 g/dL (11.7-16.6); Lymphocytes # 3.8 10^3/uL (0.8-4.8); Lymphocytes % 42.2 %; Mean Corpuscular HGB Conc 32.1 g/dL (30.0-36.0); Mean Corpuscular Hemoglobin 30.1 pg (28.0-34.0); Mean Corpuscular Volume 93.8 fl (80-94); Mean Platelet Volume 9.5 fL (7.4-10.4); Monocytes # 0.8 10^3/uL (0.2-0.9); Monocytes % 8.5 %; Neutrophils # 4.29 10^3/uL (1.8-7.7); Nucleated Red Blood Cells % 0 %; Platelet Count 205 10^3/cmm (130-400); Red Blood Count 5.18 10^6/uL (4.1-5.3); Red Cell Distribution Width 12.3 % (12.1-15.1); White Blood Count 8.9 10^3/uL (4.0-10.0)
[2021-11-27 21:42] LABS: Alanine Aminotransferase 21 U/L (0-41); Albumin Level 4.1 g/dL (3.5-5.2); Alkaline Phosphatase 90 IU/L (40-130); Aspartate Amino Transferase 18 U/L (0-40); Blood Urea Nitrogen 17 mg/dL (6-20); Calcium 9.3 mg/dL (8.5-10.5); Carbon Dioxide 24 mmol/L (22-29); Chloride 105 mmol/L (98-107); Globulin 2.8 g/dL (1.3-4.6); Glomerular Filtration Rate 76.5 mL/min (90-130); Glucose 113 mg/dL (65-115); Osmolality Calculated 300 mOsm/kg (285-295); Sodium 144 mmol/L (136-145); Total Bilirubin 0.2 mg/dL (0.15-1.2); Total Protein 6.9 g/dL (6.6-8.7)
--- NOTE | 2021-11-27 21:44 | W.ED.GENADLT ---
HPI - General Adult General: Chief complaint: General Medical Stated complaint: weakness in R hand Time Seen by Provider: 11/27/21 21:04 History of Present Illness: Patient comes in with right pinky weakness. States that 30 minutes prior to arrival he noticed he was unable to extend or abduct his right pinky finger appropriately. Denies any numbness or tingling. Denies any pain or injury. Associated symptoms: Deny chest pain, dyspnea, headache(s), nausea, rash, palpitations or vomiting Review of Systems Const: Denies: fever(s) or body aches Eyes: Denies: change in vision or blurry vision ENMT: Denies: throat pain or odynophagia Card: Denies: chest pain or palpitations Resp: Denies: dyspnea or productive cough GI: Denies: abdominal pain, nausea or vomiting : Denies: flank pain or dysuria Musc: Denies: neck pain or back pain Skin/Breast: Denies: rash or pruritus Neuro: Reports: weakness in extremities; Denies: headache(s) or numbness in extremities Psych: Denies: anxiety or change in appetite Endo: Denies: polyuria or excessive sweating PFSH ED PFSH: Medical History ASHD (arteriosclerotic heart disease) Dyslipidemia HTN (hypertension) Myocardial infarction ST elevation myocardial infarction (STEMI) Surgical History S/P PTCA (percutaneous transluminal coronary angioplasty) Family History Father CAD (coronary artery disease) Brother CAD (coronary artery disease) Hypertension Mother CAD (coronary artery disease) S/P CABG (coronary artery bypass graft) Social History Smoking and tobacco status: never smoked Alcohol intake: never Household members: spouse Marital status: Physical Exam Const: COMMON NORMALS: no acute distress, patient oriented x3, healthy appearing and alert HENMT: COMMON NORMALS: normocephalic and atraumatic HEAD & SCALP: normocephalic and atraumatic Eye: COMMON NORMALS: Equal, round and reactive pupils present and EOMs intact bilaterally PUPIL: Yes Equal, round and reactive pupils present Neck/C-Spine: COMMON NORMALS: full ROM and supple Resp: COMMON NORMALS: normal respiratory effort, No retractions and No use of accessory muscles Cardio: COMMON NORMALS: regular rate and regular rhythm RATE: regular rate RHYTHM: regular rhythm GI: COMMON NORMALS: Normal to inspection, nondistended, normoactive bowel sounds present, Soft to palpation and non-tender PALPATION: Yes Soft to palpation Back/Pelvis: COMMON NORMALS: thoracic and lumbar spine normal to inspection and no thoracic nor lumbar tenderness Extremity: NARRATIVE EXTREMITY EXAM: Decreased strength when extending or abducting the right pinky finger Neuro: COMMON NORMALS: patient oriented x3 SENSORIUM/ORIENTATION: Yes alert Psych: COMMON NORMALS: mental status grossly normal and cooperative Skin: COMMON NORMALS: no rashes or lesions noted and no wounds GENERAL SKIN EXAM: no rashes or lesions noted Course Vital Signs: Vital signs: Vital Signs Temperature 98.1 F 11/27/21 21:11 Pulse Rate 86 11/27/21 22:14 Respiratory Rate 16 11/27/21 22:14 Blood Pressure 118/81 11/27/21 22:14 Pulse Oximetry 91 11/27/21 22:14 Oxygen Delivery Me thod 11/27/21 22:14 [facility] - General Adult Medical Decision Making Patient comes in with right pinky weakness. States that 30 minutes prior to arrival he noticed he was unable to extend or abduct his right pinky finger appropriately. Denies any numbness or tingling. Denies any pain or injury. On physical exam his strength is decreased in the right pinky. Will check labs, CT, and reassess. On reassessment I talked to the patient about the test results. I discussed the case with the hospitalist, and we will admit for a stroke work-up. Lab Data : 11/27/21 21:15 11/27/21 21:[address] 11/27/21 21:20 IMPRESSION: 1. No acute intracranial hemorrhage. 2. Please note that CT is insensitive to nonhemorrhagic strokes and MRI of the brain should be considered if there is continued clinical concern for acute cerebral infarction. Cervical Spine CT 11/27/21 21:22 IMPRESSION: 1. Multilevel degenerative disc and joint disease as detailed level -by -level above. 2. Multilevel neural foraminal stenosis, worse on the right side. Laboratory Results WBC 8.9 10^3/uL (4.0-10.0) 11/27/21 21:15 RBC 5.18 10^6/uL (4.1-5.3) 11/27/21 21:15 Hgb 15.6 g/dL (11.7-16.6) 11/27/21 21:15 Hct 48.6 % (42.0-52.0) 11/27/21 21:15 MCV 93.8 fl (80-94) 11/27/21 21:15 MCH 30.1 pg (28.0-34.0) 11/27/21 21:15 MCHC 32.1 g/dL (30.0-36.0) 11/27/21 21:15 RDW 12.3 % (12.1-15.1) 11/27/21 21:15 Plt Count 205 10^3/cmm (130-400) 11/27/21 21:15 MPV 9.5 fL (7.4-10.4) 11/27/21 21:15 Neut % (Auto) 48.0 % 11/27/21 21:15 Lymph % (Auto) 42.2 % 11/27/21 21:15 [place] % (Auto) 8.5 % 11/27/21 21:15 Eos % (Auto) 0.7 % 11/27/21 21:15 Baso % (Auto) 0.4 % 11/27/21 21:15 Neut # (Auto) 4.29 10^3/uL (1.8-7.7) 11/27/21 21:15 Lymph # (Auto) 3.8 10^3/uL (0.8-4.8) 11/27/21 21:15 [place] # (Auto) 0.8 10^3/uL (0.2-0.9) 11/27/21 21:15 Eos # (Auto) 0.1 10^3/uL (0.0-0.8) 11/27/21 21:15 Baso # (Auto) 0.0 10^3/uL (0.0-0.1) 11/27/21 21:15 Nucleated RBC % (auto) 0 % 11/27/21 21:15 Nucleated RBCs # 0.0 /100WBC 11/27/21 21:15 Sodium 144 mmol/L (136-145) 11/27/21 21:15 Potassium 3.6 mmol/L (3.5-5.1) 11/27/21 21:15 Chloride 105 mmol/L (98-107) 11/27/21 21:15 Carbon Dioxide 24 mmol/L (22-29) 11/27/21 21:15 Anion Gap 18.6 (5-19) 11/27/21 21:15 BUN 17 mg/dL (6-20) 11/27/21 21:15 Creatinine 1.0 mg/dL (0.7-1.2) 11/27/21 21:15 GFR Calculation 76.5 mL/min (90-130) L 11/27/21 21:15 Glucose 113 mg/dL (65-115) 11/27/21 21:15 Calculated Osmolality 300 mOsm/kg (285-295) H 11/27/21 21:15 Calcium 9.3 mg/dL (8.5-10.5) 11/27/21 21:15 Total Bilirubin 0.2 mg/dL (0.15-1.2) 11/27/21 21:15 AST 18 U/L (0-40) 11/27/21 21:15 ALT 21 U/L (0-41) 11/27/21 21:15 Alkaline Phosphatase 90 IU/L (40-130) 11/27/21 21:15 Total Protein 6.9 g/dL (6.6-8.7) 11/27/21 21:15 Albumin 4.1 g/dL (3.5-5.2) 11/27/21 21:15 Globulin 2.8 g/dL (1.3-4.6) 11/27/21 21:15 Discharge Plan Discharge Patient Disposition: Placed in Observation Admit Provider: Juan Diego Cornejo Clinical Impression: Stroke-like symptom Coding Level of Care Code ED Inspector Soldering for Carltong Fwd Exam Comprehensive
[2021-11-27 21:45] LABS: Anion Gap 18.6 (5-19); Potassium 3.6 mmol/L (3.5-5.1)
[2021-11-27 22:14] VITALS: BP 118/81; PULSE 86; RESP 16; O2SAT 91
--- NOTE | 2021-11-27 22:41 | USR_ITS ---
PROCEDURE INFORMATION: Exam: US Duplex Bilateral Extracranial Arteries, Carotid Arteries Exam date and time: 11/27/2021 11:22 PM Age: 61 years old Clinical indication: Weakness, extremity; Right; Additional info: CVA TECHNIQUE: Imaging protocol: Real-time Duplex ultrasound scan of the bilateral carotid and vertebral arteries combining vail scale, color Doppler and spectral waveform analysis. Bilateral exam. Exam focused on the carotid arteries. COMPARISON: CT angio headneck* [id number] 06/06/2016 1:16 AM FINDINGS: Right common carotid artery: Unremarkable. No occlusion or stenosis. Waveforms are normal. Right internal carotid artery: Unremarkable. No occlusion or stenosis. Waveforms are normal. Right ICA/CCA ratio: Within normal limits. Right external carotid artery: No stenosis in the origin. Right vertebral artery: Unremarkable. Antegrade flow. Left common carotid artery: Unremarkable. No occlusion or stenosis. Waveforms are normal. Left internal carotid artery: Unremarkable. No occlusion or stenosis. Waveforms are normal. Left ICA/CCA ratio: Within normal limits. Left external carotid artery: No stenosis in the origin. Left vertebral artery: Unremarkable. Antegrade flow. US/CV carotid duplex BI* [id number] IMPRESSION: No significant carotid arterial stenosis. REFERENCES: SRU CRITERIA. The degree of internal carotid artery stenosis is based on criteria defined by the Society of Radiologists in Ultrasound (SRU). Normal is no stenosis. Mild is less than 50% stenosis. Moderate is 50-69% stenosis. Severe is greater than 69% stenosis to near occlusion. Near occlusion is a markedly narrowed lumen. Total occlusion is no detectable patent lumen.
--- NOTE | 2021-11-27 22:42 | P.HP_ITS ---
Providers/Chief Complaint Chief Complaint: weakness in R hand History of Present Illness Tyrese Bermudez is a 61 year old male with a past medical history of hypertension, CAD status post stenting, hypertension, who presents to [facility] due to right hand, pinky weakness. 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 He tells me throughout the day his right pinky weakness significantly improved, his coordinating improved, only minimal now but persistent Review of Systems Const: Denies: fever(s) Card: Denies: chest pain Resp: Denies: dyspnea GI: Denies: abdominal pain Neuro: Reports: weakness in extremities and lack of coordination; Denies: numbness in extremities, sensory changes, difficulty walking, Slurred speech present, difficulty communicating thoughts or seizure-like activity Medications/Allergies Home Medications Medication Instructions Recorded Confirmed Last Taken Type aspirin 81 mg tablet,delayed 81 mg PO DAILY #90 tabs 11/05/20 08/05/21 Unknown Rx release cholecalciferol (vitamin D3) 25 3,000 unit PO QAM 11/05/20 08/05/21 Unknown History mcg (1,000 unit) capsule (Vitamin D3) clopidogrel 75 mg tablet 75 mg PO DAILY #90 tabs 11/05/20 08/05/21 Unknown Rx lisinopril 20 mg tablet 20 mg PO DAILY #90 tabs 11/05/20 08/05/21 Unknown Rx nitroglycerin 0.4 mg sublingual 0.4 mg sublingual Q5M PRN chest 12/10/20 08/05/21 Unknown Rx tablet (Nitrostat) pain #25 tabs Allergies Allergy/AdvReac Type Severity Reaction Status Date / Time influenza virus vaccine qs Allergy Severe ALGY-Conges Verified 08/05/21 13:56 [id number] (36 mos, up) mikki [From Single Use EZ Flu] PFSH Acute PFSH: Medical History ASHD (arteriosclerotic heart disease) Dyslipidemia HTN (hypertension) Myocardial infarction ST elevation myocardial infarction (STEMI) Surgical History S/P PTCA (percutaneous transluminal coronary angioplasty) Family History Father CAD (coronary artery disease) Brother CAD (coronary artery disease) Hypertension Mother CAD (coronary artery disease) S/P CABG (coronary artery bypass graft) Social History Smoking and tobacco status: never smoked Alcohol intake: never Household members: spouse Marital status: Vitals/I&O/Wt Last Vital Signs Temp 98.1 F 11/27/21 21:11 Pulse 86 11/27/21 22:14 Resp 16 11/27/21 22:14 BP 118/81 11/27/21 22:14 Pulse Ox 91 11/27/21 22:14 O2 Del Method 11/27/21 22:14 Weight last 48 hrs Weight 93.894 kg Physical Exam Const: COMMON NORMALS: no acute distress and patient oriented x3 HENMT: COMMON NORMALS: normocephalic HEAD & SCALP: normocephalic Eye: COMMON NORMALS: Equal, round and reactive pupils present and EOMs intact bilaterally Neck/C-Spine: COMMON NORMALS: no JVD Resp: COMMON NORMALS: normal respiratory effort, No retractions, No use of accessory muscles and clear to auscultation bilaterally AUSCULTATION: clear to auscultation bilaterally Cardio: COMMON NORMALS: no JVD, regular rate, regular rhythm, S1 normal heart sound present and S2 normal heart sound present RATE: regular rate RHYTHM: regular rhythm HEART SOUNDS: S1 normal heart sound present and S2 normal heart sound present GI: COMMON NORMALS: Normal to inspection, nondistended, normoactive bowel sounds present, Soft to palpation, non-tender, No hepatosplenomegaly present, no masses and no bruits PALPATION: Yes Soft to palpation and Yes No hepatosplenomegaly present Extremity: COMMON NORMALS: capillary refill normal, no clubbing, cyanosis or edema, no calf tenderness and no pedal edema Neuro: COMMON NORMALS: patient oriented x3, CN's II-XII intact bilaterally, moves all extremities, no focal motor deficits and no sensory deficits noted OTHER: On examination, he has mild right pinky weakness, 4 out of 5, trouble coordinating very mild Psych: COMMON NORMALS: mental status grossly normal Data : 11/27/21 21:15 11/27/21 21:15 A&P Assessment and plan (1) Stroke-like symptom: MRI of the brain in 2006 No acute infarcts are present. Wilson-white matter differentiation is well- preserved. No susceptibility artifacts or prior lacunar infarcts. Ventricles and extra-axial spaces are normal. Clivus and pituitary gland are normal. Visualized posterior fossa and brainstem are also normal. Postcontrast images are negative for masses or vascular malformations. Dural venous sinuses are normal. Paranasal sinuses: Well-aerated with no significant disease. Mastoid air cells: Normal. Calvarium and scalp: Normal. CT of his neck 1. Multilevel degenerative disc and joint disease as detailed level -by -level above. 2. Multilevel neural foraminal stenosis, worse on the right side. CT head Brain: No evidence of acute intracranial hemorrhage. The wilson-white matter differentiation is maintained. Mild periventricular hypoattenuation is a nonspecific finding but likely the sequela of s chronic small vessel ischemic disease. Mild atherosclerotic calcifications of the carotid siphons. Unremarkable white matter. No mass effect. Cerebral ventricles: Mild cerebral volume loss and ex vacuo dilation of the ventricles. Paranasal sinuses: Visualized sinuses are unremarkable. No fluid levels. Mastoid air cells: Visualized mastoid air cells are well aerated. Bones/joints: Unremarkable. No acute fracture. Soft tissues: Unremarkable. -Interestingly patient does have significant neuroforaminal stenosis on the right side, however he does not really have any paresthesia or numbness symptoms Plan -Aspirin, Plavix, intolerant to statin -Allow for permissive hypertension -Normal saline -Neurochecks, aspiration precautions, night stroke scale -PT OT -Full code -Lovenox for DVT prophylaxis Status: Acute Attestations Medical Necessity Statement*: Patient requires hospitalization for concerns for CVA symptoms, outpatient with observation Coding Level of Care Code Acute Soloist Dancer for Carltong Fwd Diagnoses Stroke-like symptom R29.90
[2021-11-27 22:50] VITALS: BP 127/90; PULSE 79; RESP 16; O2SAT 92
[2021-11-27 23:04] VITALS: BP 146/86; PULSE 69; RESP 16; TEMP 37.2; O2SAT 96
[2021-11-27] MEDS: enoxaparin 40 mg/0.4 mL Syringe SUBCUT (23:08)
[2021-11-27] MEDS: sodium chloride 0.9% 1,000 ML 75 ML IV (23:08)
[2021-11-28 04:00] VITALS: BP 127/81; PULSE 72; RESP 16; TEMP 36.6; O2SAT 95
[2021-11-28 04:55] LABS: Basophils # 0.1 10^3/uL (0.0-0.1); Basophils % 0.8 %; Eosinophils # 0.1 10^3/uL (0.0-0.8); Eosinophils % 1.5 %; Hematocrit 45.3 % (42.0-52.0); Hemoglobin 14.7 g/dL (11.7-16.6); Lymphocytes # 2.5 10^3/uL (0.8-4.8); Lymphocytes % 42.1 %; Mean Corpuscular HGB Conc 32.5 g/dL (30.0-36.0); Mean Corpuscular Hemoglobin 30.6 pg (28.0-34.0); Mean Corpuscular Volume 94.2 fl (80-94); Mean Platelet Volume 9.6 fL (7.4-10.4); Monocytes # 0.6 10^3/uL (0.2-0.9); Monocytes % 9.1 %; Neutrophils # 2.79 10^3/uL (1.8-7.7); Neutrophils % 46.2 %; Nucleated Red Blood Cells % 0 %; Platelet Count 178 10^3/cmm (130-400); Red Blood Count 4.81 10^6/uL (4.1-5.3); Red Cell Distribution Width 12.2 % (12.1-15.1)
[2021-11-28 05:26] VITALS: O2SAT 92
[2021-11-28 05:26] LABS: Estmated Average Glucose 103; Hemoglobin A1C 5.2 % (4.0-6.0)
[2021-11-28 05:59] VITALS: PULSE 65
[2021-11-28] MEDS: cholecalciferol (vitamin D3) 1,000 unit Tablet 3000 UNIT PO (06:20)
[2021-11-28 07:32] VITALS: BP 138/89; PULSE 82; RESP 16; O2SAT 96
[2021-11-28 07:39] LABS: Alanine Aminotransferase 18 U/L (0-41); Albumin Level 3.6 g/dL (3.5-5.2); Alkaline Phosphatase 73 IU/L (40-130); Anion Gap 15.8 (5-19); Aspartate Amino Transferase 15 U/L (0-40); Blood Urea Nitrogen 13 mg/dL (6-20); Calcium 8.6 mg/dL (8.5-10.5); Carbon Dioxide 23 mmol/L (22-29); Chloride 109 mmol/L (98-107); Chol HDL Ratio 8.25 mg/dL (1.0-5.00); Cholesterol 198 mg/dL (0-200); Globulin 2.3 g/dL (1.3-4.6); Glomerular Filtration Rate 98.9 mL/min (90-130); Glucose 100 mg/dL (65-115); HDL Cholesterol 24 mg/dL (60-100); NT Pro B Type Natriuretic Pept 50 pg/mL (0-125); Osmolality Calculated 298 mOsm/kg (285-295); Phosphorus 3.1 mg/dL (2.5-4.5); Potassium 3.8 mmol/L (3.5-5.1); Sodium 144 mmol/L (136-145); Total Bilirubin 0.2 mg/dL (0.15-1.2); Total Protein 5.9 g/dL (6.6-8.7); Triglycerides 743 mg/dL (0-150)
[2021-11-28 07:52] LABS: LDL Cholesterol Direct 88 mg/dL (0-100)
[2021-11-28] MEDS: aspirin 81 mg EC Tablet PO (09:34)
[2021-11-28] MEDS: clopidogrel 75 mg Tablet PO (09:34)
--- NOTE | 2021-11-28 11:19 | PC.PT ---
Went to see patient for PT evaluation, occupational therapist just leaving, states patient demonstrates safely independent transfers and ambulation without assistive devices or deficits, while patient also brushes teeth etc. and standing at sink for greater than 10 minutes, and demonstrated no needs regarding physical therapy, PT evaluation deferred until further orders.
[2021-11-28 11:37] VITALS: BP 147/92; PULSE 62; RESP 16; TEMP 36.9; O2SAT 97
--- NOTE | 2021-11-28 12:30 | PM.DCS ---
Discharge Providers Date of Admission: 11/27/21 22:25 Date of Discharge: November 28, 2021 Attending Provider at Admission: Juan Diego Cornejo MD Attending Provider at Discharge: Nelda Hoffmann MD Diagnoses at Discharge Discharge Diagnosis (1) Stroke-like symptom: Status: Acute Reason for Visit Reason for Visit: weakness in R hand Brief History: Taken from H&P: Tyrese Bermudez is a 61 year old male with a past medical history of hypertension, CAD status post stenting, hypertension, who presents to [facility] due to right hand, pinky weakness.? 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 He tells me throughout the day his right pinky weakness significantly improved, his coordinating improved, only minimal now but persistent Hospital Course Hospital Course patient underwent CT head No acute intracranial hemorrhage. Ct c spine showed Multilevel degenerative disc and joint disease. Multilevel neural foraminal stenosis, worse on the right side. Carotid doppler without significant stenosis B/L. His weakenss is completely resolved at the time of my assessment today. Weakness may be related to multilevel stenosis as seen on CT vs possible carpal tunnel syndrome. Discharged with recommendation to follow up with orthopedics. Also noted to have elevted TGs and low HDL, previously has been intolerant to statins. He states he follows with Dr. Hunt and is planned to be started on alternate lipid lowering thereapy. Encouraged to follow up within the week with his PCP. Physical Exam Narrative: General: No acute distress, AO x3 HEENT: PERRLA, pupils bilaterally equal and reactive, pallors not present Chest: Normal vesicular breath sounds, no added sounds, equal good air entry bilaterally CVS: S1-S2 regular, no murmurs, no tachycardia, no gallops, no rubs Abdomen: Soft, nontender, no organomegaly, bowel sounds present Neuro: No focal deficits, no facial deformity, AO x3, power 5/5 in all limbs Discharge Data Studies Completed and Pending Completed Studies During Hospitalization Category Date Time Status CT cervical spin wo con* [id number] Stat Cat Scan 11/27/21 21:[address] head wo con* [id number] Stat Cat Scan 11/27/21 21:20 Completed CV carotid duplex BI* [id number] Stat Ultrasound 11/27/21 22:41 Completed Pending at discharge Category Date Time Status Complete Blood Count w/Auto AM LABS Lab 11/29/21 04:00 Ordered Complete Blood Count w/Auto AM LABS Lab 11/30/21 04:00 Ordered Comprehensive Metabolic Panel AM LABS Lab 11/29/21 04:00 Ordered Comprehensive Metabolic Panel AM LABS Lab 11/30/21 04:00 Ordered Magnesium AM LABS Lab 11/29/21 04:00 Ordered Magnesium AM LABS Lab 11/30/21 04:00 Ordered Phosphorus AM LABS Lab 11/29/21 04:00 Ordered Phosphorus AM LABS Lab 11/30/21 04:00 Ordered Radiology Impressions Head CT 11/27/21 21:20 IMPRESSION: 1. No acute intracranial hemorrhage. 2. Please note that CT is insensitive to nonhemorrhagic strokes and MRI of the brain should be considered if there is continued clinical concern for acute cerebral infarction. Cervical Spine CT 11/27/21 21:22 IMPRESSION: 1. Multilevel degenerative disc and joint disease as detailed level -by -level above. 2. Multilevel neural foraminal stenosis, worse on the right side. Carotid Doppler Study 11/27/21 22:41 IMPRESSION: No significant carotid arterial stenosis. REFERENCES: SRU CRITERIA. The degree of internal carotid artery stenosis is based on criteria defined by the Society of Radiologists in Ultrasound (SRU). Normal is no stenosis. Mild is less than 50% stenosis. Moderate is 50-69% stenosis. Severe is greater than 69% stenosis to near occlusion. Near occlusion is a markedly narrowed lumen. Total occlusion is no detectable patent lumen. Laboratory Results WBC 6.0 10^3/uL (4.0-10.0) 11/28/21 04:43 RBC 4.81 10^6/uL (4.1-5.3) 11/28/21 04:43 Hgb 14.7 g/dL (11.7-16.6) 11/28/21 04:43 Hct 45.3 % (42.0-52.0) 11/28/21 04:43 MCV 94.2 fl (80-94) H 11/28/21 04:43 MCH 30.6 pg (28.0-34.0) 11/28/21 04:43 MCHC 32.5 g/dL (30.0-36.0) 11/28/21 04:43 RDW 12.2 % (12.1-15.1) 11/28/21 04:43 Plt Count 178 10^3/cmm (130-400) 11/28/21 04:43 MPV 9.6 fL (7.4-10.4) 11/28/21 04:43 Neut % (Auto) 46.2 % 11/28/21 04:43 Lymph % (Auto) 42.1 % 11/28/21 04:43 [place] % (Auto) 9.1 % 11/28/21 04:43 Eos % (Auto) 1.5 % 11/28/21 04:43 Baso % (Auto) 0.8 % 11/28/21 04:43 Neut # (Auto) 2.79 10^3/uL (1.8-7.7) 11/28/21 04:43 Lymph # (Auto) 2.5 10^3/uL (0.8-4.8) 11/28/21 04:43 [place] # (Auto) 0.6 10^3/uL (0.2-0.9) 11/28/21 04:43 Eos # (Auto) 0.1 10^3/uL (0.0-0.8) 11/28/21 04:43 Baso # (Auto) 0.1 10^3/uL (0.0-0.1) 11/28/21 04:43 Nucleated RBC % (auto) 0 % 11/28/21 04:43 Nucleated RBCs # 0.0 /100WBC 11/28/21 04:43 Sodium 144 mmol/L (136-145) 11/28/21 06:51 Potassium 3.8 mmol/L (3.5-5.1) 11/28/21 06:51 Chloride 109 mmol/L (98-107) H 11/28/21 06:51 Carbon Dioxide 23 mmol/L (22-29) 11/28/21 06:51 Anion Gap 15.8 (5-19) 11/28/21 06:51 BUN 13 mg/dL (6-20) 11/28/21 06:51 Creatinine 0.8 mg/dL (0.7-1.2) 11/28/21 06:51 GFR Calculation 98.9 mL/min (90-130) 11/28/21 06:51 Glucose 100 mg/dL (65-115) 11/28/21 06:51 Estimat Average Glucose 103 11/28/21 04:43 Hemoglobin A1c 5.2 % (4.0-6.0) 11/28/21 04:43 Calculated Osmolality 298 mOsm/kg (285-295) H 11/28/21 06:51 Calcium 8.6 mg/dL (8.5-10.5) 11/28/21 06:51 Phosphorus 3.1 mg/dL (2.5-4.5) 11/28/21 06:51 Magnesium 2.0 mg/dL (1.7-2.3) 11/28/21 06:51 Total Bilirubin 0.2 mg/dL (0.15-1.2) 11/28/21 06:51 AST 15 U/L (0-40) 11/28/21 06:51 ALT 18 U/L (0-41) 11/28/21 06:51 Alkaline Phosphatase 73 IU/L (40-130) 11/28/21 06:51 NT-Pro-B Natriuret Pep 50 pg/mL (0-125) 11/28/21 06:51 Total Protein 5.9 g/dL (6.6-8.7) L 11/28/21 06:51 Albumin 3.6 g/dL (3.5-5.2) 11/28/21 06:51 Globulin 2.3 g/dL (1.3-4.6) 11/28/21 06:51 Triglycerides 743 mg/dL (0-150) H 11/28/21 06:51 Cholesterol 198 mg/dL (0-200) 11/28/21 06:51 LDL Cholesterol Direct 88 mg/dL (0-100) 11/28/21 06:51 LDL Cholesterol, Calc Not Reportable 11/28/21 06:51 HDL Cholesterol 24 mg/dL (60-100) L 11/28/21 06:51 LDL/HDL Ratio Not Reportable 11/28/21 06:51 Cholesterol/HDL Ratio 8.25 mg/dL (1.0-5.00) H 11/28/21 06:51 Vitals Last Vital Signs Temp 98.5 F 11/28/21 11:37 Pulse 62 11/28/21 11:37 Resp 16 11/28/21 11:37 BP 147/92 11/28/21 11:37 Pulse Ox 97 11/28/21 11:37 O2 Del Method 11/28/21 11:37 Discharge Plan Discharge Patient Disposition: Home Condition: Stable Prescriptions: Continued nitroglycerin [Nitrostat] 0.4 mg tablet, sublingual 0.4 mg sublingual Q5M PRN (Reason: chest pain) Qty: 25 2RF Rx Instructions: do not exceed 3 doses per episode lisinopril 20 mg Tablet 20 mg PO DAILY Qty: 90 3RF clopidogrel 75 mg Tablet 75 mg PO DAILY Qty: 90 3RF aspirin 81 mg Tablet,Delayed Release (Dr/Ec) 81 mg PO DAILY Qty: 90 3RF Vitamin C 250 mg Tablet 250 mg PO DAILY Discharge Orders: Discharge Order (Routine); Ordered 11/28/21 Ordered By: Nelda Hoffmann Referrals: Efren Hunt MD [Staff Physician] - 7-10 days J Carlos Reyez DO [Physician] - 1 month Patient Instructions: Opioid Safety Discharge Attestations Time Spent in Discharge Care*: other Quality Metrics Clinical Quality Measures [ No reported AMI, CVA or VTE this stay] Coding Level of Care Code Acute Chg FW DC note Diagnoses Stroke-like symptom R29.90
[2021-11-28 13:12] VITALS: BP 147/92; PULSE 62; RESP 16; TEMP 36.9; O2SAT 97
== END 2021-11-28 13:25 | disposition home or self-care (01) ==
LOC: ER 22:27 → MEDSURG 22:43
PROVIDERS: Admitting Provider Family Medicine; Emergency Provider Emergency Medicine; Visit Provider Student in an Organized Health Care Education/Training Program
DX: R29.90 Unspecified symptoms and signs involving the nervous system (principal); I10 Essential (primary) hypertension; I25.10 Atherosclerotic heart disease of native coronary artery without angina pectoris; Z95.5 Presence of coronary angioplasty implant and graft; Z79.82 Long term (current) use of aspirin; E78.5 Hyperlipidemia, unspecified; I25.2 Old myocardial infarction
CPT/HCPCS: 36415; 70450; 72125; 80053; 80061; 83036; 83721; 83735; 83880; 84100; 85025; 93880; 94664; 96372; 97165; 99285; G0378; J1650; J7030

== ENCOUNTER → 2022-08-25 11:04 | Outpatient (BNVA) | payer SELFPAY | PROVIDERS: PCP Family Medicine; Visit Provider Family Medicine | DX: E78.5 Hyperlipidemia, unspecified (principal); Z98.61 Coronary angioplasty status; Z00.00 Encounter for general adult medical examination without abnormal findings | CPT/HCPCS: 80053; 80061; 84153; 84443; 85025 ==

== ENCOUNTER → 2022-11-10 11:12 | Outpatient (BNVA) | payer SELFPAY | PROVIDERS: PCP Family Medicine; Visit Provider Podiatrist Foot & Ankle Surgery | DX: M77.41 Metatarsalgia, right foot | CPT/HCPCS: 73630 ==

== ENCOUNTER → 2022-12-01 11:27 | Outpatient (BNVA) | payer SELFPAY | PROVIDERS: PCP Family Medicine; Visit Provider Podiatrist Foot & Ankle Surgery | DX: M77.41 Metatarsalgia, right foot (principal); S92.341A Displaced fracture of fourth metatarsal bone, right foot, initial encounter for closed fracture; X58.XXXA Exposure to other specified factors, initial encounter | CPT/HCPCS: 73630 ==

== ENCOUNTER 2023-01-21 21:57 | Emergency (ER) | payer SELFPAY ==
[2023-01-21 22:04] VITALS: BP 192/116; PULSE 64; RESP 16; TEMP 36.8; O2SAT 98; BMI 27.5
--- NOTE | 2023-01-21 22:08 | XRR_ITS ---
PROCEDURE INFORMATION: Exam: XR Chest Exam date and time: 01/21/2023 10:33 PM Age: 62 years old Clinical indication: Pain; Chest pressure; Additional info: Chest pain TECHNIQUE: Imaging protocol: Radiologic exam of the chest. Views: 1 view. COMPARISON: CR XR chest 1V [id number] 08/15/2016 9:21 AM FINDINGS: Lungs: Unremarkable. No consolidation. Pleural spaces: Unremarkable. No pleural effusion. No pneumothorax. Heart/Mediastinum: Unremarkable. No cardiomegaly. Bones/joints: Unremarkable. XR/XR chest 1V portable [id number] IMPRESSION: No acute findings.
--- NOTE | 2023-01-21 22:09 | ECG_ITS ---
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 Measurements Intervals [place] Rate: 69 P: 24 TX: 152 QRS: -27 QRSD: 106 T: 6 QT: 406 QTc: 437 Interpretive Statements SINUS RHYTHM BORDERLINE LEFT AXIS DEVIATION [QRS AXIS < -20] Compared to ECG 11/04/2020 07:27:58 Sinus tachycardia no longer present ST (T wave) deviation no longer present Myocardial infarct finding no longer present Electronically Signed On 01-23-2023 22:56:21 CDT by David Keller M.D. [id number] f
[2023-01-21 22:44] LABS: Basophils # 0.1 10^3/uL (0.0-0.1); Basophils % 0.9 %; Eosinophils # 0.1 10^3/uL (0.0-0.8); Eosinophils % 1.1 %; Hematocrit 45.6 % (37-53); Lymphocytes # 2.8 10^3/uL (0.8-4.8); Lymphocytes % 43.2 %; Mean Corpuscular HGB Conc 32.5 g/dL (30-55); Mean Corpuscular Hemoglobin 30.1 pg (27-33); Mean Corpuscular Volume 92.7 fl (82-101); Mean Platelet Volume 10.4 fL (7.4-10.4); Monocytes # 0.5 10^3/uL (0.2-0.9); Monocytes % 7.2 %; Neutrophils # 3.05 10^3/uL (1.8-7.7); Neutrophils % 47.4 %; Nucleated Red Blood Cells % 0 %; Platelet Count 146 10^3/cmm (157-399); Red Blood Count 4.92 10^6/uL (3.85-5.65); Red Cell Distribution Width 12.3 % (12.1-15.1); White Blood Count 6.43 10^3/uL (3.29-11.43)
--- NOTE | 2023-01-21 22:58 | W.ED.CHESTPA ---
HPI - Chest Pain General: Chief Complaint: Chest Pain Stated Complaint: Chest Pain Time Seen by Provider: 01/21/23 22:41 Source: patient History of Present Illness: 62-year-old male with a history of coronary disease. He has had a stent to the RCA in the past, with occlusion x1 and revascularization. He presents with similar pain to what he had before with his PA. He describes it as a tightness in his chest with pain under his arms, right worse than left. He is not overly short of breath or nauseated. He is not diaphoretic. This started at rest a couple of hours ago at home. He felt well earlier in the day he says. The pain has subsided quite a bit since being at home, now down to 06/25. MD complaint: chest pain Pertinent past history: coronary artery disease Associated symptoms: Deny abdominal pain, dyspnea, fever(s), nausea, palpitations or vomiting Review of Systems Const: Denies: fever(s), chills or body aches Eyes: Denies: change in vision ENMT: Denies: throat pain Card: Reports: chest pain; Denies: palpitations Resp: Denies: dyspnea, productive cough, non-productive cough or wheezing GI: Denies: abdominal pain, nausea, vomiting, diarrhea or hematochezia Skin/Breast: Denies: rash Neuro: Denies: headache(s), weakness in extremities, dizziness or confusion PFS ED PFSH: Medical History (Updated 01/22/23 @ 01:08 by Slava Winter DO) ASHD (arteriosclerotic heart disease) Dyslipidemia HTN (hypertension) Myocardial infarction ST elevation myocardial infarction (STEMI) Surgical History S/P PTCA (percutaneous transluminal coronary angioplasty) Family History Father CAD (coronary artery disease) Brother CAD (coronary artery disease) Hypertension Mother CAD (coronary artery disease) S/P CABG (coronary artery bypass graft) Social History Smoking and tobacco status: never smoked Alcohol intake: never Household members: spouse Marital status: Physical Exam Const: COMMON NORMALS: no acute distress GENERAL APPEARANCE: cooperative; not ill appearing and not frail appearing HENMT: COMMON NORMALS: normocephalic, atraumatic and Normal external nose present HEAD & SCALP: normocephalic and atraumatic FACE & SINUS: normal facial exam and face symmetric NOSE: Normal external nose present Eye: COMMON NORMALS: Equal, round and reactive pupils present and EOMs intact bilaterally PUPIL: Yes Equal, round and reactive pupils present Neck/C-Spine: GENERAL: Yes trachea midline Chest: CHEST: Yes Symmetrical chest wall rise Resp: COMMON NORMALS: normal respiratory effort, No retractions, No use of accessory muscles and clear to auscultation bilaterally AUSCULTATION: clear to auscultation bilaterally Cardio: COMMON NORMALS: regular rate and regular rhythm RATE: regular rate RHYTHM: regular rhythm GI: COMMON NORMALS: Normal to inspection, nondistended, normoactive bowel sounds present Extremity: GENERAL: Yes edema (Trace) Neuro: BIANKA COMA SCALE: document GCS findings Bianka coma scale eye opening: Spontaneous Bianka coma scale verbal response: Orientated [place] coma scale motor response: Obey commands Bianka coma scale total score: 15 SENSORY EXAM: Yes extremities (intact) Psych: COMMON NORMALS: speech normal SPEECH: Yes normal speech Skin: COMMON NORMALS: no rashes or lesions noted GENERAL SKIN EXAM: no rashes or lesions noted Course Vital Signs: Vital signs: Vital Signs Temperature 98.2 F 01/21/23 22:04 Pulse Rate 68 01/22/23 01:12 Respiratory Rate 16 01/22/23 01:12 Blood Pressure 128/88 01/22/23 01:12 Pulse Oximetry 96 01/22/23 01:12 Oxygen Delivery Me thod Room Air 01/22/23 00:29 MDM - Chest Pain Medical Decision Making Pain resolved after 1 nitroglycerin here. He was quite hypertensive on arrival. Blood pressure is normal now. This may be hypertension related issue. EKG showed sinus bradycardia with no acute ST changes. Chest x-ray was negative. Troponin was 9 and remained so at 2 hours. BNP is normal at 86. Other laboratory is not remarkable. He was offered observation, but chose to go home. With the above findings, and resolution of his symptoms, this is certainly reasonable. He will return for any return of his symptoms. Close outpatient follow-up. Lab Data 01/21/23 22:30 01/21/23 22:30 Radiology Impressions Chest X-Ray 01/21/23: IMPRESSION: No acute findings. Laboratory Results WBC 6.43 10^3/uL (3.29-11.43) 01/21/23 22: RBC 4.92 10^6/uL (3.85-5.65) 01/21/23 22: Hgb 14.80 g/dL (11.27-16.99) 01/21/23 22: Hct 45.6 % (37-53) 01/21/23 22: MCV 92.7 fl (82-101) 01/21/23 22: MCH 30.1 pg (27-33) 01/21/23: MCHC 32.5 g/dL (30-55) 01/21/23: RDW 12.3 % (12.1-15.1) 01/21/23: Plt Count 146 10^3/cmm (157-399) L 01/21/23: MPV 10.4 fL (7.4-10.4) 01/21/23 22: Neut % (Auto) 47.4 % 01/21/23 22: Lymph % (Auto) 43.2 % 01/21/23 22: [place] % (Auto) 7.2 % 01/21/23: Eos % (Auto) 1.1 % 01/21/23: Baso % (Auto) 0.9 % 01/21/23: Neut # (Auto) 3.05 10^3/uL (1.8-7.7) 01/21/23: Lymph # (Auto) 2.8 10^3/uL (0.8-4.8) 01/21/23: [place] # (Auto) 0.5 10^3/uL (0.2-0.9) 01/21/23: Eos # (Auto) 0.1 10^3/uL (0.0-0.8) 01/21/23: Baso # (Auto) 0.1 10^3/uL (0.0-0.1) 01/21/23: Nucleated RBC % (auto) 0 % 01/21/23: Nucleated RBCs # 0.0 /100WBC 01/21/23 22:30 Sodium 143 mmol/L (136-145) 01/21/23 22:30 Potassium 3.5 mmol/L (3.5-5.1) 01/21/23 22:30 Chloride 105 mmol/L (98-107) 01/21/23 22:30 Carbon Dioxide 24 mmol/L (22-29) 01/21/23 22:30 Anion Gap 17.5 (5-19) 01/21/23 22:30 BUN 22 mg/dL (8-23) 01/21/23 22:30 Creatinine 1.3 mg/dL (0.7-1.2) H 01/21/23 22:30 GFR Calculation 56.3 mL/min (90-130) L 01/21/23: Glucose 103 mg/dL (65-115) 01/21/23 22:30 Calculated Osmolality 300 mOsm/kg (285-295) H 01/21/23 22:30 Calcium 9.5 mg/dL (8.5-10.5) 01/21/23 22:30 Total Bilirubin 0.3 mg/dL (0.15-1.2) 01/21/23 22:30 AST 20 U/L (0-40) 01/21/23 22:30 ALT 23 U/L (0-41) 01/21/23 22:30 Alkaline Phosphatase 87 U/L (40-130) 01/21/23 22:30 Troponin T Baseline 9 ng/L (0-15) 01/21/23 22:30 Troponin T 120 Minute 8.59 ng/L (0-15) 01/22/23 00:09 Delta Troponin T -0.41 ABS# (0-10) L 01/22/23 00:09 NT-Pro-B Natriuret Pep 86 pg/mL (0-125) 01/21/23 22:30 Total Protein 7.0 g/dL (6.6-8.7) 01/21/23 22:30 Albumin 4.4 g/dL (3.5-5.2) 01/21/23 22:30 Globulin 2.6 g/dL (1.3-4.6) 01/21/23 22: Lipase 46 U/L (13-60) 01/21/23 22:30 All radiology interpretation(s) finalized by discharge Discharge Plan Discharge Patient Disposition: Home Clinical Impression: Chest pain, HTN (hypertension) Condition: Stable Prescriptions: No Action nitroglycerin [Nitrostat] 0.4 mg tablet, sublingual 0.4 mg sublingual Q5M PRN (Reason: chest pain) Qty: 25 2RF Rx Instructions: do not exceed 3 doses per episode (DME) Carbon fiber foot plate See Rx Instructions .Route .MEDSUPPLY Qty: 1 0RF Rx Instructions: As directed triamcinolone acetonide 0.1 % cream 1 applic topical BID 7 Days Qty: 15 0RF losartan 50 mg tablet 50 mg PO DAILY Qty: 30 11RF triamcinolone acetonide 0.5 % cream 1 applic topical BID Qty: 15 2RF clopidogrel 75 mg tablet See Rx Instructions .ROUTE .COMPLEX Qty: 90 2RF Dose Instruction: TAKE 1 TABLET BY MOUTH EVERY DAY Rx Instructions: TAKE 1 TABLET BY MOUTH EVERY DAY aspirin 81 mg Tablet,Delayed Release (Dr/Ec) 81 mg PO DAILY Qty: 90 3RF Vitamin C 250 mg Tablet 250 mg PO DAILY Discharge Orders: Discharge ED (Routine); Ordered 01/22/23 Ordered By: Slava Winter Referrals: David Keller M.D [Physician] - 4-7 days Efren Hunt MD [Primary Care Provider] - 4-7 days Patient Instructions: Chest Pain (ED), Hypertension (ED) Activity Restrictions/Additional Instructions: Check your blood pressure twice daily. Record numbers for your physician. Return for any return of discomfort to the chest, shortness of breath, nausea, other concerning symptoms. Call your doctor on Tuesday, let them know you were seen here. They may wish to see you. Coding Level of Care Code ED Program Analyst for Mitali oMlina
[2023-01-21 23:06] LABS: Troponin(5th) Baseline 9 ng/L (0-15)
[2023-01-21 23:11] LABS: Alanine Aminotransferase 23 U/L (0-41); Albumin Level 4.4 g/dL (3.5-5.2); Alkaline Phosphatase 87 U/L (40-130); Blood Urea Nitrogen 22 mg/dL (8-23); Calcium 9.5 mg/dL (8.5-10.5); Carbon Dioxide 24 mmol/L (22-29); Chloride 105 mmol/L (98-107); Globulin 2.6 g/dL (1.3-4.6); Glomerular Filtration Rate 56.3 mL/min (90-130); Glucose 103 mg/dL (65-115); Lipase 46 U/L (13-60); NT Pro B Type Natriuretic Pept 86 pg/mL (0-125); Osmolality Calculated 300 mOsm/kg (285-295); Sodium 143 mmol/L (136-145); Total Bilirubin 0.3 mg/dL (0.15-1.2)
[2023-01-21 23:12] LABS: Anion Gap 17.5 (5-19); Aspartate Amino Transferase 20 U/L (0-40); Potassium 3.5 mmol/L (3.5-5.1)
[2023-01-21 23:21] LABS: Slide Review Slide Review Perform
[2023-01-22] MEDS: nitroglycerin 0.4 mg sublingual Tablet SUBLINGUAL (00:28)
[2023-01-22 00:29] VITALS: BP 165/105; RESP 18; O2SAT 95
[2023-01-22 00:49] LABS: Troponin 5 2HR 8.59 ng/L (0-15); Troponin 5 2HR Delta -0.41 ABS# (0-10)
[2023-01-22 01:12] VITALS: BP 128/88; PULSE 68; RESP 16; O2SAT 96
== END 2023-01-22 01:16 | disposition home or self-care (01) ==
PROVIDERS: Nurse Practitioner Family; Emergency Provider Emergency Medicine; PCP Family Medicine
DX: R07.9 Chest pain, unspecified (principal); I10 Essential (primary) hypertension; Z79.02 Long term (current) use of antithrombotics/antiplatelets; Z79.82 Long term (current) use of aspirin; E78.5 Hyperlipidemia, unspecified; I25.2 Old myocardial infarction
CPT/HCPCS: 36415; 71045; 80053; 83690; 83880; 84484; 85025; 93005; 99285

== ENCOUNTER 2023-01-22 18:21 | Observation (INO) | payer SELFPAY ==
[2023-01-22] VITALS (15 sets, daily range): BP systolic 123–165; BP diastolic 84–112; PULSE 58–86; RESP 10–20; TEMP 36.8–37.2; O2SAT 91–97; BMI 27.5
--- NOTE | 2023-01-22 18:23 | ECG_ITS ---
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 Measurements Intervals [place] Rate: 74 P: 35 SD: 157 QRS: -26 QRSD: 97 T: 13 QT: 378 QTc: 421 Interpretive Statements SINUS RHYTHM WITH OCCASIONAL SUPRAVENTRICULAR PREMATURE COMPLEXES BORDERLINE LEFT AXIS DEVIATION [QRS AXIS < -20] LOW QRS VOLTAGE IN PRECORDIAL LEADS [QRS DEFLECTION < 1.0 mV IN CHEST LEADS] Compared to ECG 01/21/2023 22:01:49 Low QRS voltage now present Electronically Signed On 01-23-2023 22:53:50 CDT by David Keller M.D. [id number]
--- NOTE | 2023-01-22 18:23 | XRR_ITS ---
PROCEDURE INFORMATION: Exam: XR Chest Exam date and time: 01/22/2023 6:35 PM Age: 62 years old Clinical indication: Chest pressure; Patient HX: C/O chest pain; Additional info: Chest pain; HTN; HX mi & cardiac stents x 2. TECHNIQUE: Imaging protocol: Radiologic exam of the chest. Views: 1 view. COMPARISON: CR (CHEST, ) 01/21/2023 10:33 PM FINDINGS: Lungs: Unremarkable. No consolidation. Pleural spaces: Unremarkable. No pleural effusion. No pneumothorax. Heart/Mediastinum: Unremarkable. No cardiomegaly. Bones/joints: No acute abnormality. XR/XR chest 1V portable [id number] IMPRESSION: No acute findings.
--- NOTE | 2023-01-22 18:41 | W.ED.CHESTPA ---
HPI - Chest Pain General: Chief Complaint: Chest Pain Stated Complaint: chest pain Time Seen by Provider: 01/22/23 18:28 History of Present Illness: 62-year-old male complaining of chest discomfort. He was seen earlier this morning with similar symptoms. His pain resolved in the ER, and he was allowed home. His blood pressure remained good at home. He took a walk this evening, and began to get significant discomfort back. Pain was up to an 8, prior to taking nitroglycerin at home. It is now a 2 or 3. He only took 1 nitroglycerin. He had some mild shortness of breath this time. No other significant symptoms. Associated symptoms: Reports dyspnea; Deny abdominal pain, fever(s), nausea, palpitations or vomiting Review of Systems Const: Denies: fever(s), chills or body aches Eyes: Denies: change in vision ENMT: Denies: throat pain Card: Reports: chest pain; Denies: palpitations Resp: Reports: dyspnea; Denies: productive cough, non-productive cough or wheezing GI: Denies: abdominal pain, nausea, vomiting, diarrhea or hematochezia Skin/Breast: Denies: rash Neuro: Denies: headache(s), weakness in extremities, dizziness or confusion PFS ED PFSH: Medical History (Updated 01/22/23 @ 20:57 by Slava Winter DO) ASHD (arteriosclerotic heart disease) Dyslipidemia HTN (hypertension) Myocardial infarction ST elevation myocardial infarction (STEMI) Surgical History S/P PTCA (percutaneous transluminal coronary angioplasty) Family History Father CAD (coronary artery disease) Brother CAD (coronary artery disease) Hypertension Mother CAD (coronary artery disease) S/P CABG (coronary artery bypass graft) Social History Smoking and tobacco status: never smoked Alcohol intake: never Household members: spouse Marital status: Physical Exam Const: COMMON NORMALS: no acute distress GENERAL APPEARANCE: cooperative; not ill appearing and not frail appearing HENMT: COMMON NORMALS: normocephalic, atraumatic and Normal external nose present HEAD & SCALP: normocephalic and atraumatic FACE & SINUS: normal facial exam and face symmetric NOSE: Normal external nose present Eye: COMMON NORMALS: Equal, round and reactive pupils present and EOMs intact bilaterally PUPIL: Yes Equal, round and reactive pupils present Neck/C-Spine: GENERAL: Yes trachea midline Chest: CHEST: Yes Symmetrical chest wall rise Resp: COMMON NORMALS: normal respiratory effort, No retractions, No use of accessory muscles and clear to auscultation bilaterally AUSCULTATION: clear to auscultation bilaterally Cardio: COMMON NORMALS: regular rate and regular rhythm RATE: regular rate RHYTHM: regular rhythm GI: COMMON NORMALS: Normal to inspection, nondistended, normoactive bowel sounds present Extremity: COMMON NORMALS: no pedal edema Neuro: BIANKA COMA SCALE: document GCS findings Bianka coma scale eye opening: Spontaneous [place] coma scale verbal response: Orientated [place] coma scale motor response: Obey commands [place] coma scale total score: 15 SENSORY EXAM: Yes extremities (intact) Psych: COMMON NORMALS: speech normal SPEECH: Yes normal speech Skin: COMMON NORMALS: no rashes or lesions noted GENERAL SKIN EXAM: no rashes or lesions noted Course Vital Signs: Vital signs: Vital Signs Temperature 98.9 F 01/22/23 18:28 Pulse Rate 79 01/22/23 19:00 Respiratory Rate 20 H 01/22/23 18:53 Blood Pressure 165/109 01/22/23 19:00 Pulse Oximetry 97 01/22/23 18:53 Oxygen Delivery Me thod Room Air 01/22/23 18:51 MDM - Chest Pain Medical Decision Making 62-year-old male with a history of coronary disease. Presents for the second time in less than 24 hours with chest discomfort pain continues to improve after application of Nitropaste, control patient's blood pressure although pain is not fully gone. I spoke with cardiology, and reviewed the patient's EKG with him. He agrees no significant acute changes. Troponin remains 9 which is what it was last night. However in this case given the patient's history, cardiology suggest observation. He will go to the [facility]. Recommendations were aspirin, Lovenox, and a beta-eufemia which the patient has been given. Spoke with hospitalist. He will see the patient tonight. Cardiology will see in the morning unless there are problems in the meantime. Lab Data 01/22/23 19:52 01/22/23 19:01 Radiology Impressions Chest X-Ray 01/22/23 18:23 IMPRESSION: No acute findings. Laboratory Results WBC 6.34 10^3/uL (3.29-11.43) 01/22/23 19:52 Corrected WBC Cancelled 01/22/23 18:35 RBC 4.61 10^6/uL (3.85-5.65) 01/22/23 19:52 Hgb 13.80 g/dL (11.27-16.99) 01/22/23 19:52 Hct 44.2 % (37-53) 01/22/23 19:52 MCV 95.9 fl (82-101) 01/22/23 19:52 MCH 29.9 pg (27-33) 01/22/23 19:52 MCHC 31.2 g/dL (30-55) 01/22/23 19:52 RDW 12.4 % (12.1-15.1) 01/22/23 19:52 Plt Count 142 10^3/cmm (157-399) L 01/22/23 19:52 MPV 10.4 fL (7.4-10.4) 01/22/23 19:52 Gran % Cancelled 01/22/23 18:35 Neut % (Auto) 54.3 % 01/22/23 19:52 Lymph % (Auto) 35.0 % 01/22/23 19:52 [place] % (Auto) 8.2 % 01/22/23 19:52 Eos % (Auto) 1.4 % 01/22/23 19:52 Baso % (Auto) 0.9 % 01/22/23 19:52 Neut # (Auto) 3.44 10^3/uL (1.8-7.7) 01/22/23 19:52 Lymph # (Auto) 2.2 10^3/uL (0.8-4.8) 01/22/23 19:52 [place] # (Auto) 0.5 10^3/uL (0.2-0.9) 01/22/23 19:52 Eos # (Auto) 0.1 10^3/uL (0.0-0.8) 01/22/23 19:52 Baso # (Auto) 0.1 10^3/uL (0.0-0.1) 01/22/23 19:52 Absolute Gran (auto) Cancelled 01/22/23 18:35 Nucleated RBC % (auto) 0 % 01/22/23:52 Nucleated RBCs # 0.0 /100WBC 01/22/23 19:52 PT 12.70 SECONDS (12.1-14.9) 01/22/23 18:35 INR 0.92 (0.8-1.2) 01/22/23 18:35 APTT 18.1 SECONDS (23.9-36.7) L 01/22/23 18:35 Sodium 141 mmol/L (136-145) 01/22/23 19:01 Potassium 3.8 mmol/L (3.5-5.1) 01/22/23 19:01 Chloride 104 mmol/L (98-107) 01/22/23 19:01 Carbon Dioxide 27 mmol/L (22-29) 01/22/23 19:01 Anion Gap 13.8 (5-19) 01/22/23 19:01 BUN 17 mg/dL (8-23) 01/22/23 19:01 Creatinine 1.0 mg/dL (0.7-1.2) 01/22/23 19:01 GFR Calculation 76.2 mL/min (90-130) L 01/22/23 19:01 Glucose 97 mg/dL (65-115) 01/22/23 19:01 Calculated Osmolality 293 mOsm/kg (285-295) 01/22/23 19:01 Calcium 9.2 mg/dL (8.5-10.5) 01/22/23 19:01 Total Bilirubin 0.3 mg/dL (0.15-1.2) 01/22/23 19:01 AST 18 U/L (0-40) 01/22/23 19:01 ALT 23 U/L (0-41) 01/22/23 19:01 Alkaline Phosphatase 77 U/L (40-130) 01/22/23 19:01 Troponin T Baseline 9 ng/L (0-15) 01/22/23 18:35 NT-Pro-B Natriuret Pep 79 pg/mL (0-125) 01/22/23 18:35 Total Protein 6.9 g/dL (6.6-8.7) 01/22/23 19:01 Albumin 4.1 g/dL (3.5-5.2) 01/22/23 19:01 Globulin 2.8 g/dL (1.3-4.6) 01/22/23 19:01 XR interpretation done by ED provider, pending radiology final review Discharge Plan Discharge Patient Disposition: Placed in Observation Clinical Impression: Chest pain Condition: Stable Prescriptions: No Action nitroglycerin [Nitrostat] 0.4 mg tablet, sublingual 0.4 mg sublingual Q5M PRN (Reason: chest pain) Qty: 25 2RF Rx Instructions: do not exceed 3 doses per episode (DME) Carbon fiber foot plate See Rx Instructions .Route .MEDSUPPLY Qty: 1 0RF Rx Instructions: As directed triamcinolone acetonide 0.1 % cream 1 applic topical BID 7 Days Qty: 15 0RF losartan 50 mg tablet 50 mg PO DAILY Qty: 30 11RF triamcinolone acetonide 0.5 % cream 1 applic topical BID Qty: 15 2RF clopidogrel 75 mg tablet See Rx Instructions .ROUTE .COMPLEX Qty: 90 2RF Dose Instruction: TAKE 1 TABLET BY MOUTH EVERY DAY Rx Instructions: TAKE 1 TABLET BY MOUTH EVERY DAY aspirin 81 mg Tablet,Delayed Release (Dr/Ec) 81 mg PO DAILY Qty: 90 3RF Vitamin C 250 mg Tablet 250 mg PO DAILY Referrals: Efren Hunt MD [Primary Care Provider] - Coding Level of Care Code ED Air Intercept Controller Supervisor for Mitali Molina
[2023-01-22] MEDS: aspirin 325 mg Tablet PO (19:00)
[2023-01-22] MEDS: nitroglycerin 1 gm/inch oint Pkt 1 INCH TOPICAL (19:00)
[2023-01-22 19:01] LABS: INR 0.92 (0.8-1.2); Partial Thromboplastin Time 18.1 SECONDS (23.9-36.7)
[2023-01-22 19:06] LABS: Troponin(5th) Baseline 9 ng/L (0-15)
[2023-01-22 19:15] LABS: NT Pro B Type Natriuretic Pept 79 pg/mL (0-125)
[2023-01-22 19:28] LABS: Alanine Aminotransferase 23 U/L (0-41); Albumin Level 4.1 g/dL (3.5-5.2); Alkaline Phosphatase 77 U/L (40-130); Anion Gap 13.8 (5-19); Aspartate Amino Transferase 18 U/L (0-40); Blood Urea Nitrogen 17 mg/dL (8-23); Calcium 9.2 mg/dL (8.5-10.5); Carbon Dioxide 27 mmol/L (22-29); Chloride 104 mmol/L (98-107); Globulin 2.8 g/dL (1.3-4.6); Glomerular Filtration Rate 76.2 mL/min (90-130); Glucose 97 mg/dL (65-115); Osmolality Calculated 293 mOsm/kg (285-295); Potassium 3.8 mmol/L (3.5-5.1); Sodium 141 mmol/L (136-145); Total Bilirubin 0.3 mg/dL (0.15-1.2); Total Protein 6.9 g/dL (6.6-8.7)
[2023-01-22 19:56] LABS: Basophils # 0.1 10^3/uL (0.0-0.1); Basophils % 0.9 %; Eosinophils # 0.1 10^3/uL (0.0-0.8); Eosinophils % 1.4 %; Hematocrit 44.2 % (37-53); Lymphocytes # 2.2 10^3/uL (0.8-4.8); Mean Corpuscular HGB Conc 31.2 g/dL (30-55); Mean Corpuscular Hemoglobin 29.9 pg (27-33); Mean Corpuscular Volume 95.9 fl (82-101); Mean Platelet Volume 10.4 fL (7.4-10.4); Monocytes # 0.5 10^3/uL (0.2-0.9); Monocytes % 8.2 %; Neutrophils # 3.44 10^3/uL (1.8-7.7); Neutrophils % 54.3 %; Nucleated Red Blood Cells % 0 %; Platelet Count 142 10^3/cmm (157-399); Red Blood Count 4.61 10^6/uL (3.85-5.65); Red Cell Distribution Width 12.4 % (12.1-15.1); White Blood Count 6.34 10^3/uL (3.29-11.43)
[2023-01-22] MEDS: enoxaparin 100 mg/mL Syringe 90 MG SUBCUT (21:08)
[2023-01-22 21:11] LABS: Troponin 5 2HR 8.27 ng/L (0-15); Troponin 5 2HR Delta -0.73 ABS# (0-10)
--- NOTE | 2023-01-22 21:48 | PM.HP ---
Providers/Chief Complaint Admitting Physician: Juan Diego Cornejo MD Primary Care Provider: Efren Hunt MD Chief Complaint: chest pain History of Present Illness Tyrese Bermudez is a 62 year old male with a past medical history of CAD status post stenting x2, hypertension, hyperlipidemia, who presents to [facility] for chest pain. This is patient's second ER visit for chest pain in the last 24 hours, he presents again to the emergency room, as he is developed left-sided chest pain rating down the left arm, up to the left neck, associate with shortness of breath, no lightheadedness, no dizziness, no diaphoresis, he tells me that the last time he had stents placed, his troponins and his EKGs were normal, his last stent was placed by Dr. Lizama 2 years ago, and the maker, currently he tells me his chest pain is 2 out of 10, his baseline troponin is 9, no acute ST-T wave changes on EKG Review of Systems Const: Denies: fever(s) Card: Reports: chest pain Resp: Reports: dyspnea GI: Denies: abdominal pain : Denies: flank pain Musc: Denies: neck pain or back pain Neuro: Denies: headache(s) Medications/Allergies Home Medications Medication Instructions Recorded Confirmed Last Taken Type aspirin 81 mg tablet,delayed 81 mg PO DAILY #90 tabs 11/05/20 01/05/23 11/27/21 08:00 Rx release nitroglycerin 0.4 mg sublingual 0.4 mg sublingual Q5M PRN chest 12/10/20 01/05/23 Unknown Rx tablet (Nitrostat) pain #25 tabs ascorbic acid (vitamin C) 250 mg 250 mg PO DAILY 11/27/21 01/05/23 11/27/21 08:00 History tablet (Vitamin C) losartan 50 mg tablet 50 mg PO DAILY #30 tabs 08/25/22 01/05/23 Unknown Rx triamcinolone acetonide 0.5 % 1 applic topical BID #15 grams 08/25/22 01/05/23 Unknown Rx topical cream clopidogrel 75 mg tablet See Rx Instructions .Route 10/24/22 01/05/23 Unknown Rx .COMPLEX #90 tabs Carbon fiber foot plate #1 ea 11/10/22 01/05/23 Unknown Rx triamcinolone acetonide 0.1 % 1 applic topical BID 7 days #15 01/05/23 01/05/23 Unknown Rx topical cream grams Allergies Allergy/AdvReac Type Severity Reaction Status Date / Time influenza virus vaccine qs Allergy Severe ALGY-Conges Verified 01/05/23 10:49 [id number] (36 mos, up) mikki [From Single Use EZ Flu] metoprolol Allergy ALGY-Difficulty Verified 01/22/23 21:07 Breathing PFSH Acute PFSH: Medical History ASHD (arteriosclerotic heart disease) Dyslipidemia HTN (hypertension) Myocardial infarction ST elevation myocardial infarction (STEMI) Surgical History S/P PTCA (percutaneous transluminal coronary angioplasty) Family History Father CAD (coronary artery disease) Brother CAD (coronary artery disease) Hypertension Mother CAD (coronary artery disease) S/P CABG (coronary artery bypass graft) Social History Smoking and tobacco status: never smoked Alcohol intake: never Household members: spouse Marital status: Vitals/I&O/Wt Last Vital Signs Temp 98.9 F 01/22/23 18:28 Pulse 79 01/22/23 19:00 Resp 20 H 01/22/23 18:53 BP 165/109 01/22/23 19:00 Pulse Ox 97 01/22/23 18:53 O2 Del Method Room Air 01/22/23 18:51 Weight last 48 hrs Weight 92.079 kg Physical Exam Const: COMMON NORMALS: no acute distress and patient oriented x3 GENERAL APPEARANCE: cooperative, well kempt and well developed HENMT: COMMON NORMALS: normocephalic and Normal external nose present HEAD & SCALP: normocephalic FACE & SINUS: normal facial exam NOSE: Normal external nose present MOUTH: Normal oral and palatal mucosa present Eye: COMMON NORMALS: Equal, round and reactive pupils present, EOMs intact bilaterally, conjunctivae normal and no scleral icterus CONJUNCTIVA: Yes conjunctivae normal PUPIL: Yes Equal, round and reactive pupils present Neck/C-Spine: COMMON NORMALS: full ROM, no lymphadenopathy, no JVD, Thyroid normal and No carotid bruits THYROID: Thyroid normal Lymph: LYMPHATIC: no lymphadenopathy noted Chest: COMMONS NORMALS: normal inspection of the chest Resp: COMMON NORMALS: normal respiratory effort, No retractions, No use of accessory muscles and clear to auscultation bilaterally AUSCULTATION: clear to auscultation bilaterally Cardio: COMMON NORMALS: regular rate, regular rhythm, S1 normal heart sound present, S2 normal heart sound present, No murmurs present (Cardio) and Peripheral pulses 2+ throughout RATE: regular rate RHYTHM: regular rhythm HEART SOUNDS: S1 normal heart sound present and S2 normal heart sound present PERIPHERAL PULSES: Peripheral pulses 2+ throughout GI: COMMON NORMALS: Normal to inspection, nondistended, normoactive bowel sounds present, Soft to palpation and non-tender : BLADDER/KIDNEY EXAM: Yes no CVA tenderness Back/Pelvis: COMMON NORMALS: no CVA tenderness Extremity: COMMON NORMALS: no calf tenderness and no pedal edema Neuro: COMMON NORMALS: patient oriented x3, CN's II-XII intact bilaterally, moves all extremities, no focal motor deficits and no sensory deficits noted Psych: COMMON NORMALS: mental status grossly normal, Normal thought process present, cooperative and speech normal APPEARANCE: Yes well kempt SPEECH: Yes normal speech THOUGHT PROCESS: Normal thought process present Skin: COMMON NORMALS: turgor normal and no jaundice GENERAL SKIN EXAM: turgor normal Data 01/22/23 19:52 01/22/23 19:01 A&P Assessment and plan (1) Chest pain: Plan Chest pain -Serial EKGs also reports for telemetry monitoring -We will consider nitro drip based on clinical progress -Cardiology's been consulted -Continue therapeutic Lovenox -Continue aspirin, statin, Plavix, -Cardiac echo -Full code -Lovenox for DVT prophylaxis Attestations Medical Necessity Statement*: Patient requires hospitalization, inpatient, greater than 2 midnights, for chest pain Diagnoses Chest pain R07.9
[2023-01-22] MEDS: pantoprazole 40 mg SDV IVP (22:44)
--- NOTE | 2023-01-22 23:25 | ECG_ITS ---
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 Measurements Intervals [place] Rate: 58 P: 24 MS: 161 QRS: -20 QRSD: 103 T: 2 QT: 444 QTc: 438 Interpretive Statements SINUS BRADYCARDIA LOW QRS VOLTAGE IN PRECORDIAL LEADS [QRS DEFLECTION < 1.0 mV IN CHEST LEADS] Compared to ECG 01/22/2023 18:25:50 Sinus rhythm no longer present Electronically Signed On 01-23-2023 22:58:40 CDT by David Keller M.D. [id number]
[2023-01-22 23:34] LABS: Estmated Average Glucose 108; Hemoglobin A1C 5.4 % (4.0-6.0)
[2023-01-22 23:34] LABS: Chol HDL Ratio 5.63 mg/dL (1.0-5.00); Cholesterol 169 mg/dL (0-200); HDL Cholesterol 30 mg/dL (60-100); Thyroid Stimulating Hormone 3.06 uIU/mL (0.27-4.20); Triglycerides 426 mg/dL (0-150)
[2023-01-23] VITALS (106 sets, daily range): BP systolic 100–137; BP diastolic 71–94; PULSE 52–91; RESP 0–30; TEMP 37.1; O2SAT 92–99
[2023-01-23 02:15] LABS: Troponin 5 6HR 8.71 ng/L (0-15); Troponin 5 6HR Delta -0.29 ng/L (0-12)
[2023-01-23] MEDS: acetaminophen 325 mg Tablet 650 MG PO (02:36)
[2023-01-23] MEDS: nitroglycerin 0.4 mg sublingual Tablet SUBLINGUAL ×3 (02:36→03:22)
--- NOTE | 2023-01-23 02:50 | ECG_ITS ---
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 Measurements Intervals [place] Rate: 61 P: 16 [place]: 164 QRS: -13 QRSD: 96 T: -6 QT: 448 QTc: 452 Interpretive Statements SINUS RHYTHM LOW QRS VOLTAGE IN PRECORDIAL LEADS [QRS DEFLECTION < 1.0 mV IN CHEST LEADS] Compared to ECG 01/22/2023 23:25:56 Sinus bradycardia no longer present Electronically Signed On 01-23-2023 22:58:34 CDT by David Keller M.D. [id number]
[2023-01-23] MEDS: morphine 4 mg/mL SDV 1 mL 2 MG IVP ×2 (03:31→07:54)
[2023-01-23 03:41] LABS: LDL Cholesterol Direct 86 mg/dL (0-100)
[2023-01-23 05:27] LABS: Basophils # 0.1 10^3/uL (0.0-0.1); Basophils % 0.7 %; Eosinophils # 0.1 10^3/uL (0.0-0.8); Eosinophils % 1.1 %; Hematocrit 41.9 % (37-53); Lymphocytes # 2.2 10^3/uL (0.8-4.8); Lymphocytes % 30.4 %; Mean Corpuscular HGB Conc 32.2 g/dL (30-55); Mean Corpuscular Hemoglobin 30.1 pg (27-33); Mean Corpuscular Volume 93.5 fl (82-101); Mean Platelet Volume 9.5 fL (7.4-10.4); Monocytes # 0.5 10^3/uL (0.2-0.9); Monocytes % 7.3 %; Neutrophils # 4.26 10^3/uL (1.8-7.7); Neutrophils % 60.2 %; Nucleated Red Blood Cells % 0 %; Platelet Count 155 10^3/cmm (157-399); Red Blood Count 4.48 10^6/uL (3.85-5.65); Red Cell Distribution Width 12.4 % (12.1-15.1); White Blood Count 7.08 10^3/uL (3.29-11.43)
[2023-01-23 05:38] LABS: INR 1.03 (0.8-1.2)
[2023-01-23 05:43] LABS: Anion Gap 11.8 (5-19); Blood Urea Nitrogen 16 mg/dL (8-23); Calcium 8.4 mg/dL (8.5-10.5); Carbon Dioxide 26 mmol/L (22-29); Chloride 107 mmol/L (98-107); Glomerular Filtration Rate 86.1 mL/min (90-130); Glucose 85 mg/dL (65-115); Osmolality Calculated 292 mOsm/kg (285-295); Potassium 3.8 mmol/L (3.5-5.1); Sodium 141 mmol/L (136-145)
[2023-01-23] MEDS: losartan 50 mg Tablet PO (07:52)
[2023-01-23] MEDS: clopidogrel 75 mg Tablet PO (07:52)
[2023-01-23] MEDS: aspirin 81 mg EC Tablet PO (07:54)
--- NOTE | 2023-01-23 10:23 | P.CONIM_ITS ---
Providers/Reason For Consult Consulting Physician/Specialty*: Cardiology Reason for Consult*: Chest pain history of CAD Attending Physician: Nelda Hoffmann MD Primary Care Provider: Efren Hunt MD History of Present Illness History of Present Illness Tyrese Bermudez is a 62 year old male with known history of coronary artery disease status post post PCI and stent placement to the right coronary artery moderate CAD in the LAD and RCA in the past. He has history of hyperlipidemia. History of hypertension. He was admitted to the hospital after he had chest pain described as pressure radiating to his both arms and jaw. Patient was seen in emergency room 2 days ago and was discharged home. Patient came again yesterday after he started walking with his started having chest discomfort radiating to both arms. Patient EKG showed normal sinus rhythm with no acute ischemic changes. His troponins overnight were negative. However patient had multiple episodes of chest discomfort overnight requiring nitroglycerin and morphine this morning he still have some residual chest pain described as 1- 05/28. Review of Systems General: Reports: 10 or more systems reviewed and unremarkable except in HPI and below Const: Denies: fever(s) or chills Eyes: Denies: change in vision Card: Reports: chest pain (occasional); Denies: swelling of feet/ankles, lightheadedness, dyspnea on exertion or o rthopnea Resp: Denies: dyspnea, productive cough or non-productive cough GI: Denies: abdominal pain, nausea or vomiting Musc: Reports: neck pain, back pain and joint pain Neuro: Denies: headache(s) or dizziness Psych: Denies: anxiety or depression Kings/Lymph: Denies: easy bruising or easy bleeding Medications/Allergies Home Medications Medication Instructions Recorded Confirmed Last Taken Type nitroglycerin 0.4 mg sublingual 0.4 mg sublingual Q5M PRN chest 12/10/20 01/23/23 Unknown Rx tablet (Nitrostat) pain #25 tabs Carbon fiber foot plate #1 ea 11/10/22 01/23/23 Unknown Rx aspirin 81 mg tablet,delayed 81 mg PO QAM 01/23/23 01/23/23 Unknown History release calcium-vitamin D3-vitamin K 500 2 tab PO QAM 01/23/23 01/23/23 Unknown History mg-100 unit-40 mcg chewable tablet clopidogrel 75 mg tablet 75 mg PO QAM 01/23/23 01/23/23 Unknown History losartan 50 mg tablet 50 mg PO QAM 01/23/23 01/23/23 Unknown History Allergies Allergy/AdvReac Type Severity Reaction Status Date / Time influenza virus vaccine qs Allergy Severe ALGY-Conges Verified 01/23/23 10:01 [id number] (36 mos, up) mikki [From Single Use EZ Flu] metoprolol Allergy ALGY-Difficulty Verified 01/23/23 10:01 Breathing Current Medications Generic Name Dose Route Start Last Admin Trade Name Freq PRN Reason Stop Dose Admin Acetaminophen 650 mg 01/22/23 22:24 01/23/23 02:36 Acetaminophen 325 Mg Tablet PO 650 mg Q6H PRN Administration Mild/Mod Pain Or Temp >/= 101 Aspirin 81 mg 01/23/23 09:00 01/23/23 07:54 Aspirin 81 Mg Ec Tablet PO 81 mg DAILY RONEY Administration Clopidogrel Bisulfate 75 mg 01/23/23 09:00 01/23/23 07:52 Clopidogrel 75 Mg Tablet PO 75 mg DAILY RONEY Administration Enoxaparin Sodium 90 mg 01/23/23 08:00 01/23/23 09:49 Enoxaparin 100 Mg/Ml Syringe 1 mg/kg (90 mg) Not Given SUBCUT Q12H RONEY Losartan Potassium 50 mg 01/23/23 09:00 01/23/23 07:52 Losartan 50 Mg Tablet PO 50 mg DAILY RONEY Administration Morphine Sulfate 2 mg 01/22/23 22:24 01/23/23 07:54 Morphine 4 Mg/Ml Sdv 1 Ml IVP 2 mg Q4H PRN Administration SEVERE PAIN Nitroglycerin 0.4 mg 01/22/23 22:24 01/23/23 03:22 Nitroglycerin 0.4 Mg Sublingual Tablet SUBLINGUAL 0.4 mg Q5M PRN Administration chest pain Pantoprazole Sodium 40 mg 01/22/23 22:24 01/22/23 22:44 Pantoprazole 40 Mg Sdv IVP 40 mg Q24H RONEY Administration PFSH Acute PFSH: Medical History ASHD (arteriosclerotic heart disease) Dyslipidemia HTN (hypertension) Myocardial infarction ST elevation myocardial infarction (STEMI) Surgical History S/P PTCA (percutaneous transluminal coronary angioplasty) Family History Father CAD (coronary artery disease) Brother CAD (coronary artery disease) Hypertension Mother CAD (coronary artery disease) S/P CABG (coronary artery bypass graft) Social History Smoking and tobacco status: never smoked Alcohol intake: never Household members: spouse Marital status: Dietary Habits: Current diet type/program: regular Caffeine: Yes Caffeine intake frequency: coffee Vitals/I&O/Wt Last Vital Signs Temp 98.2 F 01/22/23 23:27 Pulse 67 01/23/23 09:45 Resp 18 01/23/23 09:45 BP 129/89 01/23/23 09:45 Pulse Ox 95 01/23/23 09:45 O2 Del Method Nasal Cannula 01/23/23 04:00 O2 Flow Rate 2 01/23/23 04:00 01/22/23 01/23/23 01/23/23 22:59 06:59 14:59 Intake Total 100 / 100 100 / 100 Output Total 400 / 400 Balance -300 / -300 100 / 100 Weight last 48 hrs Weight 203 lb Physical Exam Const: COMMON NORMALS: no acute distress, patient oriented x3, no limitations, alert and well nourished HENMT: COMMON NORMALS: normocephalic, atraumatic, hearing grossly normal bilaterally and gingiva normal HEAD & SCALP: normocephalic and atraumatic Eye: COMMON NORMALS: Equal, round and reactive pupils present and EOMs intact bilaterally GENERAL EYE: appearance normal, both eyes and all related structures PUPIL: Yes Equal, round and reactive pupils present Neck/C-Spine: COMMON NORMALS: no JVD GENERAL: Yes normal visual inspection CAROTIDS: Yes normal carotid upstroke Chest: COMMONS NORMALS: normal inspection of the chest CHEST: Yes Symmetrical chest wall rise Resp: COMMON NORMALS: normal respiratory effort, No retractions, clear to auscultation bilaterally and percussion normal EFFORT & INSPECTION: Yes symmetric chest movement AUSCULTATION: clear to auscultation bilaterally PERCUSSION: percussion normal Cardio: COMMON NORMALS: no JVD, regular rate, regular rhythm, S1 normal heart sound present, S2 normal heart sound present, No gallops present (Cardio), No clicks present (Cardio), No murmurs present (Cardio) and No rub (Cardio) RATE: regular rate RHYTHM: regular rhythm HEART SOUNDS: S1 normal heart sound present and S2 normal heart sound present GI: COMMON NORMALS: Normal to inspection, nondistended, normoactive bowel sounds present, Soft to palpation and non-tender PALPATION: Yes Soft to palpation : COMMON NORMALS: Yes no CVA tenderness BLADDER/KIDNEY EXAM: Yes no CVA tenderness Back/Pelvis: COMMON NORMALS: no CVA tenderness Extremity: COMMON NORMALS: normal to inspection, full ROM, no joint enlargement, no clubbing, cyanosis or edema, no calf tenderness and no pedal edema (Mild pedal edema bilaterally.) Neuro: COMMON NORMALS: patient oriented x3, moves all extremities, no focal motor deficits and no sensory deficits noted SENSORIUM/ORIENTATION: Yes alert GAIT: Yes Normal gait present Psych: COMMON NORMALS: mental status grossly normal APPEARANCE: Yes grossly normal Skin: COMMON NORMALS: no rashes or lesions noted GENERAL SKIN EXAM: no rashes or lesions noted Data 01/23/23 04:30 01/23/23 04:30 A&P Assessment and plan (1) S/P PTCA (percutaneous transluminal coronary angioplasty): Patient was admitted to the hospital with symptoms suggestive of acute coronary syndrome/unstable angina continue to have residual chest pain in spite of maximal medical treatment. We will proceed with cardiac cath. Risk and kurtis efits of the procedure were explained in details to the patient and his and his daughter. They are agreeable to proceed. (2) HTN (hypertension): Adequately controlled (3) Dyslipidemia: Patient according to him is intolerant to statins. His triglyceride was significantly elevated. We will add fenofibrate 145 mg once a day. Coding Level of Care Code 39895 Diagnoses S/P PTCA (percutaneous transluminal coronary angioplasty) Z98.61 HTN (hypertension) I10 Dyslipidemia E78.5
--- NOTE | 2023-01-23 10:41 | XACV_ITS ---
Exam Room: 2 Ht: 183 cm Wt: 92 kg BSA: 2.18 m2 Gender: Male : 1960 Any Known Allergies: Other Exam Priority: Routine Procedure(s): Procedure Description: Diagnostic procedure Procedure Description: PCI procedure Procedure Description: Left Heart Catheterization Procedure Description: Drug Eluting Coronary Stent Procedure Description: Coronary Angiography Diagnostic Cath Status: Urgent Diagnostic Findings * Left main showed minor disease. LAD: Showed moderate severe mid lesion about 60 to 70%. Right after takeoff diagonal branch which has ostial 75 to 80%. Left circumflex artery: Showed 50 to 60% mid lesion vessel is small and nondominant. Right coronary artery: Was large and dominant vessel and showed 75 to 80% sequential lesions in the mid to distal RCA. * Left Main has no disease. * Left Anterior Descending has no disease. * Circumflex has no disease. * Mid Right Coronary Artery: obstructive 70% stenosis, RIGO: 3 flow. * Distal Right Coronary Artery: obstructive 70% stenosis, RIGO: 3 flow. * Coronary angiography shows right dominance. PCI Status: Urgent Interventional Findings * RCA intervention. Using BMW wire distal RCA was cannulized. An attempt to pass 3.5 x 18 stent to the distal portion was not successful initially. Therefore it was deployed to cover the mid lesion using 14 atmospheric pressure. Then guide liner catheter was advanced over the wire to the mid RCA and then another 3 oh by 3.5 x 18 stent was advanced to the distal lesion and was deployed using 14 atmospheric pressure. Finally an another 3.5 x 18 stent was brought into the mid to distal portion and overlapped with previous stent deployed using 14 nona of pressure final angiogram revealed excellent results with RIGO-3 flow normal residual stenosis.. * Mid Right Coronary Artery: 70% stenosis treated with a MDT R MENDEZ 3.5X18 JULIEN. * Distal Right Coronary Artery: 70% stenosis treated with a MDT R MENDEZ 3.5X18 JULIEN, and MDT R MENDEZ 3.5X18 JULIEN. Conclusions 1. Successful PCI with 3 drug-eluting stent to the RCA as mentioned above. Residual 60 to 70% stenosis in the mid LAD that might need to be further evaluated with intravascular ultrasound Significant need intervention. 2. There is obstructive coronary artery disease with one vessel disease. 3. Normal left ventricular systolic function. Ejection fraction of 55%. 4. Normal LV function with EF above 55% no gradient across the aortic valve no significant MR seen. 5. Mid Right Coronary Artery was treated with a Drug Eluting Stent. 6. Distal Right Coronary Artery was treated with a Drug Eluting Stent, and Drug Eluting Stent. Recommendations * Continue aspirin we will switch to Brilinta. Post Op Diagnosis: Description: CAD status post drug-eluting stent placement Ventriculography Ejection Fraction: 55.0 % Left Ventriculography Findings: * Normal LV function with EF above 55% no gradient across the aortic valve no significant MR seen. Pressures Phase:Rest AO : 129 / 90 ( 107 ) @ 12:22:00 PM 120 / 97 ( 109 ) @ 12:27:00 PM 131 / 87 ( 110 ) @ 12:31:00 PM 136 / 91 ( 113 ) @ 12:32:00 PM 121 / 89 ( 105 ) @ 12:45:00 PM 123 / 88 ( 105 ) @ 12:49:00 PM 133 / 79 ( 104 ) @ 12:56:00 PM 134 / 82 ( 105 ) @ 12:56:00 PM LV : 123 / 12 / 13 @ 12:53:00 PM 129 / 0 / 11 @ 12:56:00 PM 129 / 0 / 13 @ 12:56:00 PM Valves Phase:DefaultPhase AV : 0.0 @ 12:11:33 PM AV Mean Gradient: 0.0 @ 12:11:33 PM Clinical Evaluation EBL: 5mL-10mL Procedural Details Procedure Consent Obtained. Admit Source: In Patient. Pre-Procedure Time Out. Identified patient by full name and date of as verbalized by the patient/guarantor. Does the consent match the physician's order: Yes. Accurate & Complete Informed Consent: Yes. Inpatient/Outpatient History & Physical on Chart: Yes. If H&P is completed, is and addenduem needed: Yes; If yes, is the addendum complete: No. Relevant Radiology Images available: N/A. The risks, benefits, and alternatives of sedation and/or procedure were discussed by physician. The patient agrees to continue. Procedure started. [facility] Clinical Fraility Score: 3: Managing Well. 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 Chest Pain Symptom Assessment: Typical Angina Symptoms. Correct patient, site and procedure confirmed by cath team. Current diagnosis: Unstable Angina. PERRLA. 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 Lungs clear x 5 lobes. IV Site on Arrival: 20 gauge in the right anticubital. IV Fluids: 0.9% NaCl at 75ml/hr. 0 mL infused prior to laborer tin can. Pre Procedural Pulses: bilateral radial was 3+. Pre Procedural Pulses: bilateral dorsalis pedis was 3+. Pre Procedural Pulses: bilateral posterior tibial was 3+. Oxygen started at 2liters/min via nasal canula. bilateral groins was prepped with chloroprep then draped in the usual sterile fashion. Physician notified. Baseline sample Acquired. HR: 87 BPM. Physician arrived. Physician scrubbed in. Immediate Pre-Procedure Time Out. Correct Patient: Yes; Correct Procedure: Yes; Correct Site: Yes; Correct Patient Position: Yes; Correct Supplies: Yes; Dried Flammable Prep: Yes; Blood Products Available: No;. Lidocaine 1% infiltrated to the right groin. Arterial access obtained with micropuncture set. A 5 cypriot JL4 catheter in over wire. Multiple views taken of left coronary artery. Catheter removed over the standard wire. A 5 cypriot JR4 catheter in over wire. Multiple views taken of right coronary artery. 6 cypriot JR 4 guide catheter was inserted over the wire. BMW guidewire was advanced through the guide catheter to lesion in the distal RCA. Guidewire advanced across lesion. Stent inserted to lesion in the distal RCA, unable to cross. Intact stent out over wire. 6fr Guideline support catheter in over BMW wire. Stent inserted to lesion in the mid RCA. Inflation Number : 1 A MDT R MENDEZ 3.5X18 JULIEN -Lot Number# [id number] EXP 03-12-2025 was prepped and advanced across the Mid RCA. The stent was deployed at 12 NONA for 0:10 seconds. Stent balloon out over wire. Stent inserted to lesion in the distal RCA. Inflation Number : 1 A MDT R MENDEZ 3.5X18 JULIEN -Lot Number# [id number] EXP 07-15-2024 was prepped and advanced across the Dist RCA. The stent was deployed at 14 NONA for 0:14 seconds. Results checked. Inflation Number : 2 A MDT R MENDEZ 3.5X18 JULIEN -Lot Number#[id number] EXP 07-21-2024 was prepped and advanced across the Dist RCA. The stent was deployed at 14 NONA for 0:12 seconds. Guideliner and wire out. Guide catheter out over standard wire. A 5 cypriot Angled Pig catheter in over wire. EDP Sample taken: LV 123/12,13; HR: 75 BPM; SpO2: 98%. LV gram performed in HE @ 10 mL/second for a total of 20 mL. EDP Sample taken: LV 129/-1,11; HR: 72 BPM; SpO2: 97%. Pullback taken: LV 129/0,13; AO 134/82(105); Mean: 0mmHg, Peak to Peak: 0mmHg, SEP: 8sec/min; HR: 72 BPM; SpO2: 97%. A Right femoral angiogram was performed to determine safe placement of closure device. A Suture was successful obtaining hemostatsis at the Right Femoral artery insertion site. Sheath(s) sutured into position with 2-0 silk and sterile 4x4's and Op-site applied over the site. No oozing or signs and symptoms of hematoma noted. Arterial sheath flushed and connected to tranducer and pressure bag with heparinized saline. Post Procedure: Pulses reassessed and unchanged. PERRLA. 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 No VTE prophylaxis required. Medication's Wasted: Nitro = 49.7 mg. Medication's Wasted: Other = Fentanyl 50mcg. ACT drawn. Results 220 seconds. Therapeutic limits - pre-heparin administration 90-150 seconds and monitoring heparin during a vascular procedure >250 seconds. Medication's Wasted: Heparin = 4000 unit. Total IV fluids: 60 mL. Post-op diagnosis: Severe mid and distal RCA stenosis, status post pci placement of 3 stents. Rigo Nnamdi 3 pre and post. Complications: None. Estimated blood loss: 5mL-10mL. Responsiveness - Normal response to verbal stimuli; alert and oriented, PERRLA. Airway - Unaffected, no intervention required; spontaneous ventilation. Circulation: W/N/L, pulses unchanged. Nausea/Vomiting: No. Procedure completed. Patient transferred by bed to ICU. Catheter removed over the standard wire. Stent balloon out over wire. Stent inserted to lesion in the distal RCA. Stent balloon out over wire. Catheter removed over the standard wire. Vital chart was stopped. Access Site Site: Right Femoral artery Sheath Size: 6 Fr Hemostasis Method: Suture Hemostasis Success: Successful Procedure Medications Start: 11:16 AM Stop: 11:16 AM Medication: Fentanyl Amount: 50 mcg Route: I.V. Start: 11:17 AM Stop: 11:17 AM Medication: Versed Amount: 2 mg Route: I.V. Start: 11:24 AM Stop: 11:24 AM Medication: Nitrogylcerin Amount: 200 mcg Route: I.C. Start: 11:30 AM Stop: 11:30 AM Medication: Heparin Amount: 5000 units Route: I.V. Start: 11:34 AM Stop: 11:34 AM Medication: Aggrastat 12.5 mg/250 mL Amount: 46 ml Route: I.V. bolus Start: 11:50 AM Stop: 11:50 AM Medication: Nitrogylcerin Amount: 100 mcg Route: I.C. Start: 12:09 PM Stop: 12:09 PM Medication: Plavix Amount: 75 mg Route: P.O. I, the attending physician, have reviewed and verified all procedure medications. Yes, all medications given per verbal order History/Risk Factors Hypertension: Yes Dyslipidemia: Yes Peripheral Arterial Disease (PAD): No Myocardial Infarction ([place]): Yes Obesity: No Renal Disease: No Tobacco Use: Never Prior Interventions PCI: Yes CABG: No Valve Surgery: No Date of PCI: 11/04/2020 Report Signatures Finalized by Sarah Heath MD on 01/23/2023 12:21 PM
--- NOTE | 2023-01-23 12:13 | P.PN_ITS ---
Subjective Subjective: Patient continues to have chest pain overnight. Plan for Electrical And Instrument Engineer today. Medications: Reviewed: Yes Vitals/I&O/Wt Last Vital Signs Temp 98.2 F 01/22/23 23:27 Pulse 67 01/23/23 09:45 Resp 18 01/23/23 09:45 BP 129/89 01/23/23 09:45 Pulse Ox 95 01/23/23 09:45 O2 Del Method Nasal Cannula 01/23/23 04:00 O2 Flow Rate 2 01/23/23 04:00 01/22/23 01/23/23 01/23/23 22:59 06:59 14:59 Intake Total 100 / 100 100 / 100 Output Total 400 / 400 Balance -300 / -300 100 / 100 Weight last 48 hrs Weight 92.079 kg Physical Exam Narrative: General: No acute distress, AO x3 HEENT: PERRLA, pupils bilaterally equal and reactive, pallors not present Chest: Normal vesicular breath sounds, no added sounds, equal good air entry bilaterally CVS: S1-S2 regular, no murmurs, no tachycardia, no gallops, no rubs Abdomen: Soft, nontender, no organomegaly, bowel sounds present Neuro: No focal deficits, no facial deformity, AO x3, power 5/5 in all limbs Data 01/23/23 04:30 01/23/23 04:30 A&P Assessment and plan (1) Chest pain: Plan Chest pain ongoing and persisting and patient with multiple cardiac risk factors Serial EKGs and troponin reassuring, however given ongoing chest pain with multiple risk factors patient being taken to cardiac Electrical And Instrument Engineer today. Appreciate cardiology recommendations. -Continue therapeutic Lovenox, aspirin, statin, Plavix -Cardiac echo pending -Full code -Lovenox will suffice for DVT prophylaxis Attestations Medical Necessity Statement*: Needs continued admission for ongoing chest pain, plan for cardiac cath today. Coding Level of Care Code Acute Code for Chg Fwd Moderate MDM includes number and complexity of problems actively addressed during encounter, amount and/or complexity of data reviewed/ordered and described risk of complication, morbidity or mortality of management as documented Diagnoses Chest pain R07.9
--- NOTE | 2023-01-23 12:19 | USCV_ITS ---
Lara Tyrese Age: 62 Gender: M : 1960 Exam Date: 01/23/2023 13:52 Ordering Phys: Nelda Hoffmann MD Technologist: Jarred Li Exam Location: [facility] [place] Indication: nstemi BP: 108 / 81 HR: 67 Rhythm: Sinus Technical Quality: Adequate MEASUREMENTS (Male / Female) Normal Values 2D ECHO LVOT Diameter 2.1 cm LV Ejection Fraction MOD 2C 55.6 % LV Ejection Fraction 2C AL 56.4 % LA Diameter 3.2 cm LA Width 3.1 cm LA Height 5.5 cm RA Width 2.8 cm RA Height 5.2 cm M-MODE Aortic Annulus Diameter 2.9 cm LA Ao Ratio MM 1.2 MV E Point Septal Separation 0.4 cm DOPPLER AV Peak Velocity 133.3 cm/s LVOT Peak Velocity 85.0 cm/s AV Area Cont Eq vti 2.4 cm squared AV Area Cont Eq pk 2.2 cm squared MV Peak Velocity 85.0 cm/s MV Area PHT 4.0 cm squared Mitral E to A Ratio 0.9 MV E' Velocity 36.5 cm/s Mitral E to MV E' Ratio 6.0 Mitral E to LV E' Lateral Ratio 4.6 Mitral E to LV E' Septal Ratio 8.7 TR Peak Velocity 179.5 cm/s TR Peak Gradient 12.9 mmHg TR Mean Velocity 141.2 cm/s TR Mean Gradient 8.2 mmHg TR Velocity Time Integral 34.9 cm Right Atrial Pressure 8.0 mmHg Pulmonary Artery Systolic Pressu 20.9 mmHg PV Peak Velocity 95.3 cm/s RV Acceleration Time 0.1 s RV Ejection Time 0.3 s RV AcT/ET 0.5 FINDINGS Left Ventricle Normal left ventricular size, systolic function and wall thickness, with no regional wall motion abnormalities. Normal left ventricular wall thickness. Grade 1 diastolic filling pattern. Right Ventricle The right ventricle is normal in size and function. Right Atrium The right atrium is normal in size. Left Atrium The left atrium is normal in size. Mitral Valve Structurally normal mitral valve without significant stenosis or prolapse. There is mild mitral regurgitation. Aortic Valve Structurally normal aortic valve without significant sclerosis or stenosis. There is mild aortic regurgitation. Tricuspid Valve Structurally normal tricuspid valve without significant stenosis. There is mild regurgitation. Pulmonary artery systolic pressure is normal. Pulmonic Valve Structurally normal pulmonic valve without significant stenosis. There is no pulmonic regurgitation. Pericardium Normal pericardium without effusion. Aorta Normal ascending aorta dimension. IVC The inferior vena cava appears normal. CONCLUSIONS Sarah Heath MD (Electronically Signed) Final Date: 23 January 2023 17:03 S
[2023-01-23 15:10] LABS: Partial Thromboplastin Time 38.9 SECONDS (23.9-36.7)
[2023-01-23] MEDS: pantoprazole 40 mg SDV IVP (21:14)
--- NOTE | 2023-01-23 21:30 | PC.NURSE ---
Called and confirmed with that patients lovenox was to be discontinued as patient has started PO Brilinta in the morning.
[2023-01-24] VITALS: BP 134/94; PULSE 79; RESP 20; TEMP 36.6; O2SAT 95
[2023-01-24 04:00] VITALS: BP 141/95; PULSE 81; RESP 20; TEMP 36.5; O2SAT 96
[2023-01-24 06:00] VITALS: PULSE 67
[2023-01-24 08:00] VITALS: BP 141/95; PULSE 100; RESP 18; O2SAT 94
--- NOTE | 2023-01-24 08:30 | PM.PN ---
Subjective Subjective: Patient had PCI of RCA with 3 stents. No chest pain. Vitals/I&O/Wt Last Vital Signs Temp 97.7 F 01/24/23 04:00 Pulse 67 01/24/23 06:00 Resp 20 H 01/24/23 04:00 BP 141/95 01/24/23 04:00 Pulse Ox 96 01/24/23 04:00 O2 Del Method Room Air 01/24/23 04:00 O2 Flow Rate 2 01/23/23 04:00 01/23/23 01/24/23 01/24/23 22:59 06:59 14:59 Intake Total 480 / 940 Output Total 900 / 900 1100 / 2000 Balance -420 / 40 -1100 / -1060 Weight last 48 hrs Weight 203 lb Physical Exam Narrative: GENERAL: Patient is alert, awake and oriented x3. [] NECK: No jugular vein distension. [] HEENT: No cyanosis. No icterus. No pallor. [] HEART: Regular S1 and S2. No murmur, rub or gallop. [] LUNGS: Clear to auscultate bilaterally. [] CENTRAL NERVOUS SYSTEM: Grossly nonfocal. [] EXTREMITIES: Lower extremities with no edema bilaterally. [] Data 01/23/23 04:30 01/23/23 04:30 A&P Assessment and plan (1) S/P PTCA (percutaneous transluminal coronary angioplasty): (2) HTN (hypertension): (3) Dyslipidemia: Plan Patient had PCI of RCA with 3 stents. Continue aspirin and brilinta for atleast 1 year Cannot tolerate statins. Will start repatha as outpatient Outpatient stress test for LAD moderate disease Patient is stable to be discharged from cardiology standpoint. Please call with questions. Attestations Medical Necessity Statement*: Care expected to cross 2 midnights. Coding Level of Care Code Acute Code for Chg Fwd Diagnoses S/P PTCA (percutaneous transluminal coronary angioplasty) Z98.61 HTN (hypertension) I10 Dyslipidemia E78.5
[2023-01-24] MEDS: fenofibrate 145 mg Tablet PO (08:54)
[2023-01-24] MEDS: aspirin 81 mg EC Tablet PO (08:54)
[2023-01-24] MEDS: ticagrelor 90 mg Tablet PO (08:54)
[2023-01-24 08:55] VITALS: BP 141/95
[2023-01-24] MEDS: losartan 50 mg Tablet PO (08:55)
--- NOTE | 2023-01-24 09:39 | P.DS_ITS ---
Discharge Providers Date of Admission: 01/22/23 22:24 Date of Discharge: January 24, 2023 Attending Provider at Admission: Juan Diego Cornejo MD Attending Provider at Discharge: Jayme Brown MD Consults: Cardiology Primary Care Provider: Efren Hunt MD Diagnoses at Discharge Discharge Diagnosis (1) S/P PTCA (percutaneous transluminal coronary angioplasty): Status: Acute (2) HTN (hypertension): Status: Acute (3) Dyslipidemia: Status: Acute Reason for Visit Reason for Visit: chest pain Hospital Course Hospital Course Tyrese Bermudez is a 62-year-old male with a past medical history significant for coronary artery disease with history of stents, dyslipidemia, and hypertension who presented with chest pain, found to have unstable angina. Cardiology consulted and followed. He underwent cardiac catheterization which revealed disease in the RCA as well as the mid LAD. RCA lesion was treated with 3 drug- eluting stents. His LAD lesion may need PCI in the future. Postprocedure, symptoms resolved. Patient counseled on dual antiplatelet therapy. Beta- eufemia considered but not started due to concern for bradycardia. Patient discharged home in stable condition. He is to follow-up with his primary care provider and in cardiology clinic. Physical Exam Narrative: General: Patient is awake and alert. Head: Normocephalic. Atraumatic. EOM intact. Neck: No JVD. Cardiovascular: RRR. No gallops. No murmurs. Lungs: Clear to auscultation, no use of accessory muscles, no crackles or wheezes. Skin: No jaundice. No rashes. Abdomen: Normal bowel sounds, abdomen soft and nontender. Genito Urinary: Genital exam not performed since complaints not related. Rectal: Rectal exam not performed since no symptoms indicated blood loss. Extremities: No cyanosis or clubbing. Musculoskeletal: No swollen or erythematous joints. Neurological: Moves all 4 extremities. No myoclonus. 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 echo complete* [id number] Routine Ultrasound 01/23/23 12:19 Completed Radiology Impressions Chest X-Ray 01/22/23 18:23 IMPRESSION: No acute findings. Laboratory Results WBC 7.08 10^3/uL (3.29-11.43) 01/23/23 04:30 Corrected WBC Cancelled 01/22/23 18:35 RBC 4.48 10^6/uL (3.85-5.65) 01/23/23 04:30 Hgb 13.50 g/dL (11.27-16.99) 01/23/23 04:30 Hct 41.9 % (37-53) 01/23/23 04:30 MCV 93.5 fl (82-101) 01/23/23 04:30 MCH 30.1 pg (27-33) 01/23/23 04:30 MCHC 32.2 g/dL (30-55) 01/23/23 04:30 RDW 12.4 % (12.1-15.1) 01/23/23 04:30 Plt Count 155 10^3/cmm (157-399) L 01/23/23 04:30 MPV 9.5 fL (7.4-10.4) 01/23/23 04:30 Gran % Cancelled 01/22/23 18:35 Neut % (Auto) 60.2 % 01/23/23 04:30 Lymph % (Auto) 30.4 % 01/23/23 04:30 [place] % (Auto) 7.3 % 01/23/23 04:30 Eos % (Auto) 1.1 % 01/23/23 04:30 Baso % (Auto) 0.7 % 01/23/23 04:30 Neut # (Auto) 4.26 10^3/uL (1.8-7.7) 01/23/23 04:30 Lymph # (Auto) 2.2 10^3/uL (0.8-4.8) 01/23/23 04:30 [place] # (Auto) 0.5 10^3/uL (0.2-0.9) 01/23/23 04:30 Eos # (Auto) 0.1 10^3/uL (0.0-0.8) 01/23/23 04:30 Baso # (Auto) 0.1 10^3/uL (0.0-0.1) 01/23/23 04:30 Absolute Gran (auto) Cancelled 01/22/23 18:35 Nucleated RBC % (auto) 0 % 01/23/23 04:30 Nucleated RBCs # 0.0 /100WBC 01/23/23 04:30 PT 13.80 SECONDS (12.1-14.9) 01/23/23 04:30 INR 1.03 (0.8-1.2) 01/23/23 04:30 APTT 38.9 SECONDS (23.9-36.7) H D 01/23/23 14:37 Sodium 141 mmol/L (136-145) 01/23/23 04:30 Potassium 3.8 mmol/L (3.5-5.1) 01/23/23 04:30 Chloride 107 mmol/L (98-107) 01/23/23 04:30 Carbon Dioxide 26 mmol/L (22-29) 01/23/23 04:30 Anion Gap 11.8 (5-19) 01/23/23 04:30 BUN 16 mg/dL (8-23) 01/23/23 04:30 Creatinine 0.9 mg/dL (0.7-1.2) 01/23/23 04:30 GFR Calculation 86.1 mL/min (90-130) L 01/23/23 04:30 Glucose 85 mg/dL (65-115) 01/23/23 04:30 Estimat Average Glucose 108 01/22/23 18:35 Hemoglobin A1c 5.4 % (4.0-6.0) 01/22/23 18:35 Calculated Osmolality 292 mOsm/kg (285-295) 01/23/23 04:30 Calcium 8.4 mg/dL (8.5-10.5) L 01/23/23 04:30 Total Bilirubin 0.3 mg/dL (0.15-1.2) 01/22/23 19:01 AST 18 U/L (0-40) 01/22/23 19:01 ALT 23 U/L (0-41) 01/22/23 19:01 Alkaline Phosphatase 77 U/L (40-130) 01/22/23 19:01 Troponin T Baseline 9 ng/L (0-15) 01/22/23 18:35 Troponin T 120 Minute 8.27 ng/L (0-15) 01/22/23 20:30 Delta Troponin T -0.73 ABS# (0-10) L 01/22/23 20:30 Troponin T Hi Sens 6Hr 8.71 ng/L (0-15) 01/23/23 01:16 Troponin T Hi Sens 6Hr Delta -0.29 ng/L (0-12) L 01/23/23 01:16 NT-Pro-B Natriuret Pep 79 pg/mL (0-125) 01/22/23 18:35 Total Protein 6.9 g/dL (6.6-8.7) 01/22/23 19:01 Albumin 4.1 g/dL (3.5-5.2) 01/22/23 19:01 Globulin 2.8 g/dL (1.3-4.6) 01/22/23 19:01 Triglycerides 426 mg/dL (0-150) H 01/22/23 20:30 Cholesterol 169 mg/dL (0-200) 01/22/23 20:30 LDL Cholesterol Direct 86 mg/dL (0-100) 01/22/23 20:30 LDL Cholesterol, Calc Not Reportable 01/22/23 20:30 HDL Cholesterol 30 mg/dL (60-100) L 01/22/23 20:30 LDL/HDL Ratio Not Reportable 01/22/23 20:30 Cholesterol/HDL Ratio 5.63 mg/dL (1.0-5.00) H 01/22/23 20:30 TSH 3.06 uIU/mL (0.27-4.20) 01/22/23 20:30 Procedures Performed Cardiac cath with PCI/JULIEN to RCA x3 Vitals Last Vital Signs Temp 97.7 F 01/24/23 04:00 Pulse 67 01/24/23 06:00 Resp 20 H 01/24/23 04:00 BP 141/95 01/24/23 08:55 Pulse Ox 96 01/24/23 04:00 O2 Del Method Room Air 01/24/23 04:00 O2 Flow Rate 2 01/23/23 04:00 Discharge Plan Discharge Patient Disposition: Home Condition: Stable Prescriptions: New Brilinta 90 mg Tablet 90 mg PO BID 30 Days Qty: 60 11RF fenofibrate nanocrystallized 145 mg Tablet 145 mg PO DAILY 30 Days Qty: 30 1RF Continued nitroglycerin [Nitrostat] 0.4 mg tablet, sublingual 0.4 mg sublingual Q5M PRN (Reason: chest pain) Qty: 25 2RF Rx Instructions: do not exceed 3 doses per episode (DME) Carbon fiber foot plate See Rx Instructions .Route .MEDSUPPLY Qty: 1 0RF Rx Instructions: As directed losartan 50 mg tablet 50 mg PO QAM Aspir-81 81 mg Tablet,Delayed Release (Dr/Ec) 81 mg PO QAM Calcium Chew 500-100-40 mg-unit-mcg Tablet,Chewable 2 tab PO QAM Discontinued clopidogrel 75 mg tablet 75 mg PO QAM Discharge Orders: Discharge Order (Routine); Ordered 01/24/23 Ordered By: Jayme Brown Referrals: David Keller M.D [Physician] - 1 month (REGISTERED NURSE OBSTETRICS visit ok.) Efren Hunt MD [Primary Care Provider] - 4-7 days Discharge Diet: Advance as tolerated and Cardiac Discharge Activity: Resume usual activity, Increase activity as tolerated and As per cardiac/pulm rehab instructions Patient Instructions: Fenofibrate (By mouth) (Tricor, Fenoglide, Antara, Lipofen), Ticagrelor (By mouth) (Brilinta), Coronary Angioplasty (DC), Chest Pain Stoplight, Opioid Safety, Post Angiogram Home Care Instructions Activity Restrictions/Additional Instructions: 1. No strenuous activity for three weeks. 2. Take medications as prescribed. 3. Follow up with PCP and cardiology clinic. Discharge Attestations Time Spent in Discharge Care*: greater than 30 min Quality Metrics Clinical Quality Measures [ No reported AMI, CVA or VTE this stay] Coding Level of Care Code Acute Code for Chg Fwd Diagnoses S/P PTCA (percutaneous transluminal coronary angioplasty) Z98.61 HTN (hypertension) I10 Dyslipidemia E78.5
--- NOTE | 2023-01-24 12:16 | PC.NURSE ---
Isaac carl provided to pt. discharge papers provided to pt.
== END 2023-01-24 12:19 | disposition home or self-care (01) ==
LOC: ER 20:57 → ICU 01-23 01:51 → CSU 01-23 19:23
PROVIDERS: Specialist; Admitting Provider Family Medicine; Emergency Provider Emergency Medicine; PCP Family Medicine; Visit Provider Internal Medicine
DX: I25.110 Atherosclerotic heart disease of native coronary artery with unstable angina pectoris (principal); Z95.5 Presence of coronary angioplasty implant and graft; E78.5 Hyperlipidemia, unspecified; I10 Essential (primary) hypertension; Z79.82 Long term (current) use of aspirin; I25.2 Old myocardial infarction
CPT/HCPCS: 36415; 71045; 80048; 80053; 80061; 83036; 83721; 83880; 84443; 84484; 85025; 85347; 85610; 85730; 93005; 93306; 93458; 94664; 96367; 96372; 96374; 96375; 96376; 99152; 99153; 99285; C1769; C1874; C1887; C1894; C9113; C9600; G0378; J1644; J1650; J2250; J2270; J3010; J3490; J7030; Q9967

== ENCOUNTER → 2023-01-31 08:13 | Outpatient (BNVA) | payer SELFPAY | PROVIDERS: PCP Family Medicine; Visit Provider Family Medicine | DX: I25.10 Atherosclerotic heart disease of native coronary artery without angina pectoris (principal); Z00.00 Encounter for general adult medical examination without abnormal findings | CPT/HCPCS: 80048 ==

== ENCOUNTER 2023-07-20 07:08 | Outpatient (CLI) | payer SELFPAY ==
--- NOTE | 2023-07-20 | ECG_ITS ---
[facility] Test Date: 2023-07-20 Pat Name: Tyrese Bermudez Department: Room: Gender: Male Pmo Lead: : 1960 Requested By: David Keller Order Number: [id number] Yari MD: David Keller M.D. Interpretive Statements NAME OF STUDY: EXERCISE SESTAMIBI STRESS TEST INDICATION: [Chest Pain] EXERCISE DATA: The patient was exercised by Julien protocol. Baseline heart rate was 69 beats per minute. Baseline blood pressure was 152/103 millimeters of mercury. Maximal predicted heart rate was 159 beats per minute. Maximum heart rate achieved was 167 which was 105% of the maximum predicted heart rate. Maximum blood pressure was 179/100 millimeters of mercury. Total exercise time was 6 minutes.. Maximum METs achieved was 7. The reason for ending the test was completion of protocol. The patient complained of shortness of breath during the stress test, which then resolved at the end of the test. ELECTROCARDIOGRAM: BASELINE: Showed sinus rhythm, normal axis, no significant ST-T changes at the baseline noted. PACs are seen. [] EXERCISE: At the peak exercise level, [] No significant ST-T changes suggestive of ischemia noted. [] RECOVERY: During the recovery period, heart rate dropped appropriately. No significant ST-T changes in the recovery suggestive of ischemia noted. [] CONCLUSION: 1. Exercise capacity is fair. 2. Heart rate response was appropriate. 3. Blood pressure response was appropriate. 4. Symptoms not suggestive of ischemia. 5. Electrocardiogram portion of the stress test was not suggestive of ischemia. 6. Nuclear scan will be documented separately. Electronically Signed On 08-04-2023 7:05:26 CDT by David Keller M.D. [id number]
[2023-07-20 07:11] VITALS: BMI 28.3
--- NOTE | 2023-07-20 07:16 | NMCV_ITS ---
NM rosario perf SPECT r/s* [id number] Tyrese Bermudez Age: 63 Gender: M : 1960 Exam Date: 07/20/2023 07:47 Ordering Phys: David Keller M.D ([email or web address]) Technologist: DEANNE Scanlon Exam Location: [facility] Indications: CHEST PAIN STRESS TEST [facility] IMAGE PROTOCOL Rest/Stress 1 Exercise Day Radiopharmaceutical Dose (mCi) Administration Site Administered by Rest: Tc-99m 10.7 IV DEANNE Orona Sestamibi Stress:Tc-99m 32.6 IV DEANNE Orona Sestamibi Rest: 20-Jul-2023 60 Discovery 630 Stress: 20-Jul-2023 15 Discovery 630 Radiopharmaceutical was injected at 85 % maximum heart rate. Images obtained in supine and prone position. SPECT RESULTS Technical Quality: Excellent Raw Data Analysis: Normal Image Corrections: No attenuation or motion correction applied Summed Stress Score: 5 Summed Rest Score: 4 Summed Difference Score: 1 PERFUSION FINDINGS There is medium sized area of fixed perfusion defect noted in inferolateral wall. This is consistent with medium sized area of prior infarct in left circumflex artery territory. Small area of partially reversible perfusion defect is seen in inferior wall. This is consistent with small area of prior infarct with minimal rodrigo-infarct ischemia in RCA territory. FUNCTIONAL RESULTS (calculated via Gated SPECT) Stress Image LV EF (%): 66 Stress EDV (mL):112 TID: 0.9 Stress ESV (mL):38 FUNCTIONAL FINDINGS: There is normal left ventricular systolic function. IMPRESSIONS 1. Medium sized area of prior infarct seen in the left circumflex artery territory. 2. Small area of prior infarct with minimal rodrigo-infarct ischemia seen in RCA territory 3. LV systolic function is normal David Keller MD (Electronically Signed) Final Date: 21 July 2023 11:53 S
[2023-07-20 08:48] VITALS: BP 166/105; PULSE 102
== END 2023-07-20 07:09 | disposition home or self-care (01) ==
LOC: CDL 07:09
PROVIDERS: PCP Family Medicine; Visit Provider Internal Medicine
DX: R07.9 Chest pain, unspecified (principal)
CPT/HCPCS: 36415; 78452; 93017; A9500

== ENCOUNTER → 2023-08-12 07:25 | Outpatient (BNVA) | payer SELFPAY | PROVIDERS: PCP Family Medicine; Visit Provider Family Medicine | DX: I10 Essential (primary) hypertension (principal); I25.10 Atherosclerotic heart disease of native coronary artery without angina pectoris | CPT/HCPCS: 80053; 80061; 85025 ==

== ENCOUNTER → 2023-08-25 16:24 | Outpatient (BNVA) | payer SELFPAY | PROVIDERS: PCP Family Medicine; Visit Provider Family Medicine | DX: L98.9 Disorder of the skin and subcutaneous tissue, unspecified (principal) | CPT/HCPCS: 88305 ==

== ENCOUNTER → 2023-09-30 13:23 | Outpatient (BNVA) | payer SELFPAY | PROVIDERS: PCP Family Medicine; Visit Provider Family Medicine | DX: L98.9 Disorder of the skin and subcutaneous tissue, unspecified (principal) | CPT/HCPCS: 88305 ==

== ENCOUNTER → 2024-02-13 08:42 | Outpatient (BNVA) | payer SELFPAY | PROVIDERS: PCP Family Medicine; Visit Provider Family Medicine | DX: I10 Essential (primary) hypertension (principal); I25.10 Atherosclerotic heart disease of native coronary artery without angina pectoris | CPT/HCPCS: 80053; 80061; 85025 ==

== ENCOUNTER → 2024-08-01 08:38 | Outpatient (BNVA) | payer SELFPAY | PROVIDERS: PCP Family Medicine; Visit Provider Family Medicine | DX: I10 Essential (primary) hypertension (principal); I25.10 Atherosclerotic heart disease of native coronary artery without angina pectoris | CPT/HCPCS: 80053; 80061; 85025 ==

== ENCOUNTER → 2025-01-30 08:36 | Outpatient (BNVA) | payer SELFPAY | PROVIDERS: PCP Family Medicine; Visit Provider Family Medicine | DX: I25.10 Atherosclerotic heart disease of native coronary artery without angina pectoris (principal); I10 Essential (primary) hypertension | CPT/HCPCS: 80053; 80061; 85025 ==